=== PATIENT | female | born 1980 | race Caucasian/White ===

== ENCOUNTER → 2016-08-24 | Outpatient (CLI) | payer BC ==
[2016-08-24 15:20] LABS: Basophils # (A) 0.1 k/uL (0-0.2); Basophils % (A) 1 %; CH 34.4; CHCM 34.4; Eosinophils # (A) 0.1 k/uL (0-0.7); Eosinophils % (A) 1 %; HCT 45.1 % (34.0-46.0); HDW 2.71; HGB 15.8 gm/dL (11.4-16.0); Luc # (Auto) 0.15; Luc % (Auto) 2; Lymphocytes # (A) 1.9 k/uL (1.0-4.8); Lymphocytes % (A) 21 %; MCH 35.1 pg (25.0-35.0); MCHC 34.9 g/dL (31.0-37.0); MCV 100.6 fL (80.0-100.0); Macrocytosis Slight; Monocytes # (A) 0.4 k/uL (0-1.0); Monocytes % (A) 4 %; Neutrophils # (A) 6.6 k/uL (1.3-7.7); Neutrophils % (A) 72 %; RBC 4.48 m/uL (3.80-5.40); RDW 13.5 % (11.5-15.5); WBC 9.3 k/uL (3.8-10.6); WBC (Perox) 9.45
[2016-08-24 15:42] LABS: ALT 35 U/L (9-52); AST 25 U/L (14-36); Blood Urea Nitrogen 16 mg/dL (7-17); Non-African American GFR(MDRD) >60 (>60 ml/min/1.73 sqM)
[2016-08-24 16:00] LABS: HCG,Quantitative Serum <2.4 mIU/mL
[2016-08-24 16:14] LABS: Hepatitis B Surface Ag Index 0.05
[2016-08-24 16:31] LABS: Hepatitis B Surface Antibody Negative (Negative); Hepatitis C Virus IgG Ab Negative (Negative); Hepatitis C Virus IgG Index 0.02
== END ==
LOC: LABWHC1 14:53
PROVIDERS: ATTEND Dermatology
DX: D48.5 Neoplasm of uncertain behavior of skin (principal)
CPT/HCPCS: 36415; 82565; 84450; 84460; 84520; 84702; 85025; 86706; 86803; 87340

== ENCOUNTER 2017-06-12 09:57 | Emergency (ER) | payer OTHER ==
[2017-06-12] MEDS ORDERED: ONDANSETRON 4 MG/2 ML VIAL IVP STA (10:30)
[2017-06-12] MEDS ORDERED: SODIUM CHLORIDE 0.9% 1,000 ML IV ONE ×2 (10:30)
--- NOTE | 2017-06-12 10:34 | ED ---
Female Urogenital HPI - General Chief complaint: Vaginal Bleeding Stated complaint: Vaginal Bleeding Time Seen by Provider: 06/12/17 10:18 Source: patient, EMS Mode of arrival: EMS - History of Present Illness Initial comments: This 37-year-old white female presents complaining of vaginal bleeding. She relates that it started a couple hours ago. She passed very large clots and then was continuously bleeding. She states that she was sitting on the toilet and bleeding out of significant amount. She presents via EMS. She denies any abdominal pain. She does relate that she had a right adnexal mass removed approximately a month and a half ago. This showed endometrial carcinoma. She followed up at [facility] in [place] and had a laparoscopic hysterectomy done approximately 2 weeks ago. She denies any significant bleeding since that time. She has not started any chemotherapy as of yet. Her surgical scars of been feeling well. She feels slightly lightheaded and has some mild nausea but denies any other complaints. - Related Data Home Medications Medication Instructions Recorded Confirmed metFORMIN HCL [Glucophage] 500 mg PO TID PRN 04/27/17 06/12/17 Lisinopril [Zestril] 20 mg PO DAILY 06/12/17 06/12/17 Allergies Allergy/AdvReac Type Severity Reaction Status Date / Time Sulfa (Sulfonamide Allergy Unknown Verified 06/12/17 11:25 Antibiotics) Review of Systems ROS Statement: Those systems with pertinent positive or pertinent negative responses have been documented in the HPI. ROS Other: All systems not noted in ROS Statement are negative. Past Medical History Past Medical History: Diabetes Mellitus, Hypertension Additional Past Medical History / Comment(s): Kidney stones History of Any Multi-Drug Resistant Organisms: MRSA Date of last positivie culture/infection: 04/19/17 MDRO Source:: urine Past Surgical History: Back Surgery, Hysterectomy, Orthopedic Surgery Additional Past Surgical History / Comment(s): back x 2/lithrotripsy and stent in kidney, OOPHERECTOMY Apr BY DR BERNARD, HYSTERECTOMY [address] DUNLAP AT [facility]. Past Anesthesia/Blood Transfusion Reactions: No Reported Reaction Past Psychological History: No Psychological Hx Reported Smoking Status: Current every day smoker Past Alcohol Use History: Occasional - Past Family History Mother Family Medical History: Diabetes Mellitus, Hypertension Father Family Medical History: Diabetes Mellitus, Hypertension General Exam - General Exam Comments Initial Comments: GENERAL: The patient is well nourished and well hydrated. VITAL SIGNS: Heart rate, blood pressure, respiratory rate reviewed as recorded in nurse's notes. EYES: Pupils are round and reactive. Extraocular movements are intact. No conjunctival / lid redness or swelling. ENT: No external evidence of injury, swelling, or ecchymosis. Airway is patent. Throat is clear. NECK: Nontender. No swelling or evidence of injury. No subcutaneous emphysema. Trachea is midline. No thyroid mass. HEART: Regular rate and rhythm. Good peripheral pulses. LUNGS/CHEST: Breath sounds clear and equal bilaterally. No rales, rhonchi, or wheezes. No ecchymosis, subcutaneous emphysema, or tenderness. ABDOMEN: Abdomen soft without tenderness. No palpable masses or organomegaly. No peritoneal signs. No abdominal wall swelling or ecchymosis. EXTREMITIES: No extremity tenderness. Normal muscle tone and function. No thoracolumbar tenderness. NEUROLOGIC: Sensation is grossly intact. Cranial nerve exam reveals face is symmetrical, tongue is midline, speech is clear. SKIN: No abrasions or ecchymosis is noted. No induration or masses noted. PSYCHIATRIC: Alert and oriented. Appropriate behavior and judgment. Pelvic exam: There is some blood clots noted in the vaginal canal. There is no active bleeding noted. There is a area of scab noted where the cervix should be. There is no perineal lesions. There may be some very mild left adnexal tenderness but no midline or right sided tenderness. Course Vital Signs 06/12/17 06/12/17 10:04 13:08 Temperature 97.9 F 98.9 F Pulse Rate 97 67 Respiratory 18 15 Rate Blood Pressure 122/89 96/54 O2 Sat by Pulse 100 100 Oximetry Medical Decision Making - Medical Decision Making The patient was seen and examined. All diagnostics were reviewed. An IV is started and she is hydrated. Pelvic exam is performed. She receives some Zofran intravenously. No significant bleeding currently is noted on pelvic examination. The case is discussed with Dr. Bernard as well as Dr. Hay, her gynecologic oncologist out of [facility]. Dr. Lauren does present and evaluates the patient in the ER. He does perform a pelvic exam. He packs her vagina with some iodoform gauze. He feels as though she is stable for discharge. She is to remove the packing tomorrow and follow-up with Dr. Hay on Sunday, 3 days from now. She is to call Dr. Bernard if there are any further significant bleeding or dizziness. The patient's labs are currently stable. She did receive 4 mg of morphine as well prior to the vaginal packing as she did have a moderate amount of pain just on pelvic examination by myself. Ultram as though she is stable for discharge and leaves in no significant distress. - Lab Data Result diagrams: 06/12/17 10:35 06/12/17 10:35 Lab Results 06/12/17 06/12/17 06/12/17 Range/Units 10:35 10:35 10:35 WBC 7.8 (3.8-10.6) k/uL RBC 3.78 L (3.80-5.40) m/uL Hgb 11.6 (11.4-16.0) gm/dL Hct 35.1 (34.0-46.0) % MCV 92.9 (80.0-100.0) fL MCH 30.8 (25.0-35.0) pg MCHC 33.2 (31.0-37.0) g/dL RDW 13.2 (11.5-15.5) % Plt Count 488 H (150-450) k/uL Neutrophils % 69 % Lymphocytes % 23 % Monocytes % 4 % Eosinophils % 1 % Basophils % 0 % Neutrophils # 5.4 (1.3-7.7) k/uL Lymphocytes # 1.8 (1.0-4.8) k/uL Monocytes # 0.3 (0-1.0) k/uL Eosinophils # 0.1 (0-0.7) k/uL Basophils # 0.0 (0-0.2) k/uL PT (9.0-12.0) sec INR (<1.2) APTT (22.0-30.0) sec Sodium 142 (137-145) mmol/L Potassium 5.0 (3.5-5.1) mmol/L Chloride 106 (98-107) mmol/L Carbon Dioxide 23 (22-30) mmol/L Anion Gap 13 mmol/L BUN 12 (7-17) mg/dL Creatinine 0.66 (0.52-1.04) mg/dL Est GFR (CKD-EPI)AfAm >90 (>60 ml/min/1.73 sqM) Est GFR (CKD-EPI)NonAf >90 (>60 ml/min/1.73 sqM) Glucose 158 H (74-99) mg/dL Calcium 9.3 (8.4-10.2) mg/dL Total Bilirubin 0.4 (0.2-1.3) mg/dL AST 25 (14-36) U/L ALT 28 (9-52) U/L Alkaline Phosphatase 70 (38-126) U/L Total Protein 7.3 (6.3-8.2) g/dL Albumin 4.0 (3.5-5.0) g/dL Blood Type A Positive Blood Type Recheck No Antibody Screen NEGATIVE Spec Expiration Date 06/15/2017233406/12/17 Range/Units 10:35 WBC (3.8-10.6) k/uL RBC (3.80-5.40) m/uL Hgb (11.4-16.0) gm/dL Hct (34.0-46.0) % MCV (80.0-100.0) fL MCH (25.0-35.0) pg MCHC (31.0-37.0) g/dL RDW (11.5-15.5) % Plt Count (150-450) k/uL Neutrophils % % Lymphocytes % % Monocytes % % Eosinophils % % Basophils % % Neutrophils # (1.3-7.7) k/uL Lymphocytes # (1.0-4.8) k/uL Monocytes # (0-1.0) k/uL Eosinophils # (0-0.7) k/uL Basophils # (0-0.2) k/uL PT 9.9 (9.0-12.0) sec INR 1.0 (<1.2) APTT 22.1 (22.0-30.0) sec Sodium (137-145) mmol/L Potassium (3.5-5.1) mmol/L Chloride (98-107) mmol/L Carbon Dioxide (22-30) mmol/L Anion Gap mmol/L BUN (7-17) mg/dL Creatinine (0.52-1.04) mg/dL Est GFR (CKD-EPI)AfAm (>60 ml/min/1.73 sqM) Est GFR (CKD-EPI)NonAf (>60 ml/min/1.73 sqM) Glucose (74-99) mg/dL Calcium (8.4-10.2) mg/dL Total Bilirubin (0.2-1.3) mg/dL AST (14-36) U/L ALT (9-52) U/L Alkaline Phosphatase (38-126) U/L Total Protein (6.3-8.2) g/dL Albumin (3.5-5.0) g/dL Blood Type Blood Type Recheck Antibody Screen Spec Expiration Date Disposition Clinical Impression: Vaginal bleeding, Endometrial cancer, History of hysterectomy Disposition: HOME SELF-CARE Condition: Good Referrals: Jim Garner DO [Primary Care Provider] - 1-2 days Eric Bernard MD [STAFF PHYSICIAN] - 06/19/17 Time of Disposition: 14:38
[2017-06-12 11:03] LABS: ALT 28 U/L (9-52); AST 25 U/L (14-36); Alkaline Phosphatase 70 U/L (38-126); Anion Gap 13 mmol/L; Blood Urea Nitrogen 12 mg/dL (7-17); Calcium 9.3 mg/dL (8.4-10.2); Carbon Dioxide 23 mmol/L (22-30); Chloride 106 mmol/L (98-107); Glucose 158 mg/dL (74-99); Sodium 142 mmol/L (137-145); Total Bilirubin 0.4 mg/dL (0.2-1.3); Total Protein 7.3 g/dL (6.3-8.2)
[2017-06-12 11:16] LABS: Basophils % (A) 0 %; Eosinophils # (A) 0.1 k/uL (0-0.7); Eosinophils % (A) 1 %; HCT 35.1 % (34.0-46.0); HGB 11.6 gm/dL (11.4-16.0); Lymphocytes # (A) 1.8 k/uL (1.0-4.8); Lymphocytes % (A) 23 %; MCH 30.8 pg (25.0-35.0); MCHC 33.2 g/dL (31.0-37.0); MCV 92.9 fL (80.0-100.0); Mean Platelet Volume 7.2; Monocytes # (A) 0.3 k/uL (0-1.0); Monocytes % (A) 4 %; Neutrophils # (A) 5.4 k/uL (1.3-7.7); Neutrophils % (A) 69 %; Platelet Count 488 k/uL (150-450); RBC 3.78 m/uL (3.80-5.40); RDW 13.2 % (11.5-15.5); WBC 7.8 k/uL (3.8-10.6)
[2017-06-12 11:18] LABS: Partial Thromboplastin Time 22.1 sec (22.0-30.0); Prothrombin Time 9.9 sec (9.0-12.0)
[2017-06-12] MEDS ORDERED: MORPHINE SULFATE 4 MG/ML SYRINGE IV STA (12:41)
[2017-06-12 13:09] VITALS: BP 96/54; PULSE 67; RESP 15; TEMP 98.9
--- NOTE | 2017-06-12 14:37 | P.OBCN ---
History of Present Illness Consult date: 06/12/17 Requesting physician: Manfred Cole Reason for consult: other (Vaginal bleeding) Chief complaint: Acute vaginal bleeding status post hysterectomy 2 weeks ago History of present illness: The patient is a 37-year-old woman who was initially admitted to ne approximately 6-8 weeks ago with acute abdominal pain through the emergency room. The at that time, she was found to have an acute abdomen and was taken to the operating room secondary to findings of a large what appeared to be hemorrhagic right ovarian cyst. Intraoperatively, the mass was noted to be adherent to local structures including the uterus and pelvic sidewall. It was ultimately removed through the laparotomy and sent for pathology. She did very well in the postop. 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 As a result, she was referred to the [facility] gynecology system for further evaluation and treatment. She was taken to the operating room 2 weeks ago where she underwent a da Eugenia robotically assisted laparoscopic hysterectomy and staging procedure. Her left ovary was left in situ. She reportedly did well in the postoperative phase though she had some slow return of normal bowel function. She reports that this morning, she began to have acute vaginal bleeding and passage of clots. Of some interest, she reports that the clots were all dark, there was no fresh red bleeding. The did feel somewhat dizzy and, not knowing what else to do, presented to the emergency room for evaluation. She denies any significant ongoing vaginal bleeding at this time. She denies any further symptoms of orthostasis. Obstetric and gynecologic history: Pertinent only as noted in history of present illness. Review of Systems Review of systems is confined to history of present illness. Past Medical History Past Medical History: Diabetes Mellitus, Hypertension Additional Past Medical History / Comment(s): Kidney stones History of Any Multi-Drug Resistant Organisms: MRSA Year Discovered:: 04/19/17 MDRO Source:: urine Past Surgical History: Back Surgery, Hysterectomy, Orthopedic Surgery Additional Past Surgical History / Comment(s): back x 2/lithrotripsy and stent in kidney, OOPHERECTOMY Apr BY DR MARIA, HYSTERECTOMY [address] DUNLAP AT [facility]. Past Anesthesia/Blood Transfusion Reactions: No Reported Reaction Past Psychological History: No Psychological Hx Reported Smoking Status: Current every day smoker Past Alcohol Use History: Occasional - Past Family History Mother Family Medical History: Diabetes Mellitus, Hypertension Father Family Medical History: Diabetes Mellitus, Hypertension Medications and Allergies Home Medications Medication Instructions Recorded Confirmed Type metFORMIN HCL [Glucophage] 500 mg PO TID PRN 04/27/17 06/12/17 History Lisinopril [Zestril] 20 mg PO DAILY 06/12/17 06/12/17 History Allergies Allergy/AdvReac Type Severity Reaction Status Date / Time Sulfa (Sulfonamide Allergy Unknown Verified 06/12/17 11:25 Antibiotics) Exam - Vital Signs Vital signs: Vital Signs Temp Pulse Resp BP Pulse Ox 06/12/17 13:08 98.9 F 67 15 96/54 100 06/12/17 10:04 97.9 F 97 18 122/89 100 Intake and Output 06/11/17 06/12/17 06/12/17 22:59 06:59 14:59 Other: Weight 104.326 kg Patient Weight 06/13/17 06:59 Weight 104.326 kg In general, this is a moderately obese white female in no acute distress. Her heart has a regular rhythm and rate without murmur. Her lungs are clear to auscultation bilaterally in all marcelo. Her abdomen is obese, nondistended, has normal active bowel sounds, is soft, nontender aside from typical postsurgical tenderness and without any apparent masses. Speculum examination demonstrates a small amount of old-appearing clot in the vaginal vault near the apex of the vagina. The cuff was never entirely viewed but was covered with clot which was left in place. As there was no active ongoing bleeding nor any sites to potentially place a stitch, the decision was made to pack the vagina. 2 inch iodophor gauze covered with bacitracin ointment was then used to pack the vagina from the apex to the introitus. Results Result Diagrams: 06/12/17 10:35 06/12/17 10:35 Abnormal Lab Results - Last 24 Hours (Table) 06/12/17 06/12/17 Range/Units 10:35 10:35 RBC 3.78 L (3.80-5.40) m/uL Plt Count 488 H (150-450) k/uL Glucose 158 H (74-99) mg/dL Assessment and Plan (1) History of hysterectomy Current Visit: Yes Status: Acute Code(s): Z90.710 - ACQUIRED ABSENCE OF BOTH CERVIX AND UTERUS SNOMED Code(s): 243116494 (2) Vaginal bleeding Current Visit: Yes Status: Acute Code(s): N93.9 - ABNORMAL UTERINE AND VAGINAL BLEEDING, UNSPECIFIED SNOMED Code(s): 721948044 Plan: I suspect the patient had a vaginal cuff hematoma which worked its way through the stitch line this morning. Typically, these are self-limited. In either case, I have packed the vagina with iodoform gauze as noted above in order to create some form of Blanket not. She has an appointment to follow-up in the [facility] oncology in approximately 3 days. I have asked her to remove the packing at home herself and follow-up with [facility] oncology as previously planned. I discussed the case with the [facility] oncologist of record, Dr. Hay, who agrees with the plan as it has been outlined. I do feel that she is absolutely hemodynamically stable and can be discharged home to follow-up in the outpatient as noted above.
--- NOTE | 2017-06-12 14:41 | ED ---
Medical Decision Making - Lab Data Result diagrams: 06/12/17 10:35 06/12/17 10:35 Lab Results 06/12/17 06/12/17 06/12/17 Range/Units 10:35 10:35 10:35 WBC 7.8 (3.8-10.6) k/uL RBC 3.78 L (3.80-5.40) m/uL Hgb 11.6 (11.4-16.0) gm/dL Hct 35.1 (34.0-46.0) % MCV 92.9 (80.0-100.0) fL MCH 30.8 (25.0-35.0) pg MCHC 33.2 (31.0-37.0) g/dL RDW 13.2 (11.5-15.5) % Plt Count 488 H (150-450) k/uL Neutrophils % 69 % Lymphocytes % 23 % Monocytes % 4 % Eosinophils % 1 % Basophils % 0 % Neutrophils # 5.4 (1.3-7.7) k/uL Lymphocytes # 1.8 (1.0-4.8) k/uL Monocytes # 0.3 (0-1.0) k/uL Eosinophils # 0.1 (0-0.7) k/uL Basophils # 0.0 (0-0.2) k/uL PT (9.0-12.0) sec INR (<1.2) APTT (22.0-30.0) sec Sodium 142 (137-145) mmol/L Potassium 5.0 (3.5-5.1) mmol/L Chloride 106 (98-107) mmol/L Carbon Dioxide 23 (22-30) mmol/L Anion Gap 13 mmol/L BUN 12 (7-17) mg/dL Creatinine 0.66 (0.52-1.04) mg/dL Est GFR (CKD-EPI)AfAm >90 (>60 ml/min/1.73 sqM) Est GFR (CKD-EPI)NonAf >90 (>60 ml/min/1.73 sqM) Glucose 158 H (74-99) mg/dL Calcium 9.3 (8.4-10.2) mg/dL Total Bilirubin 0.4 (0.2-1.3) mg/dL AST 25 (14-36) U/L ALT 28 (9-52) U/L Alkaline Phosphatase 70 (38-126) U/L Total Protein 7.3 (6.3-8.2) g/dL Albumin 4.0 (3.5-5.0) g/dL Blood Type A Positive Blood Type Recheck No Antibody Screen NEGATIVE Spec Expiration Date 06/15/2017 - 233406/12/17 Range/Units 10:35 WBC (3.8-10.6) k/uL RBC (3.80-5.40) m/uL Hgb (11.4-16.0) gm/dL Hct (34.0-46.0) % MCV (80.0-100.0) fL MCH (25.0-35.0) pg MCHC (31.0-37.0) g/dL RDW (11.5-15.5) % Plt Count (150-450) k/uL Neutrophils % % Lymphocytes % % Monocytes % % Eosinophils % % Basophils % % Neutrophils # (1.3-7.7) k/uL Lymphocytes # (1.0-4.8) k/uL Monocytes # (0-1.0) k/uL Eosinophils # (0-0.7) k/uL Basophils # (0-0.2) k/uL PT 9.9 (9.0-12.0) sec INR 1.0 (<1.2) APTT 22.1 (22.0-30.0) sec Sodium (137-145) mmol/L Potassium (3.5-5.1) mmol/L Chloride (98-107) mmol/L Carbon Dioxide (22-30) mmol/L Anion Gap mmol/L BUN (7-17) mg/dL Creatinine (0.52-1.04) mg/dL Est GFR (CKD-EPI)AfAm (>60 ml/min/1.73 sqM) Est GFR (CKD-EPI)NonAf (>60 ml/min/1.73 sqM) Glucose (74-99) mg/dL Calcium (8.4-10.2) mg/dL Total Bilirubin (0.2-1.3) mg/dL AST (14-36) U/L ALT (9-52) U/L Alkaline Phosphatase (38-126) U/L Total Protein (6.3-8.2) g/dL Albumin (3.5-5.0) g/dL Blood Type Blood Type Recheck Antibody Screen Spec Expiration Date Disposition Clinical Impression: Vaginal bleeding, Endometrial cancer, History of hysterectomy Disposition: HOME SELF-CARE Condition: Good Additional Instructions: We saw you today for vaginal bleeding after a hysterectomy. Please follow-up with their gynecologic oncologist in 3 days as scheduled. Please remove the packing tomorrow. Please call Dr. Bernard if there is further bleeding or dizziness. Referrals: Jim Garner DO [Primary Care Provider] - 1-2 days Eric Bernard MD [STAFF PHYSICIAN] - 06/19/17
== END 2017-06-12 15:32 | disposition home or self-care (01) ==
LOC: EC 09:57
DX: C54.1 Malignant neoplasm of endometrium (principal); Z90.710 Acquired absence of both cervix and uterus; I10 Essential (primary) hypertension; F17.200 Nicotine dependence, unspecified, uncomplicated; Z98.890 Other specified postprocedural states; Z86.14 Personal history of Methicillin resistant Staphylococcus aureus infection; Z88.2 Allergy status to sulfonamides; Z79.899 Other long term (current) drug therapy
CPT/HCPCS: 36415; 86900; 86901; 80053; 85025; 85610; 85730; 86850; 99284; 96374; 96375; 96361; J2270; J2405

== ENCOUNTER 2017-09-27 | Emergency (ER) | payer OTHER | END 2017-09-27 01:57 | disposition home or self-care (01) | DX: R21 Rash and other nonspecific skin eruption (principal); E11.9 Type 2 diabetes mellitus without complications; I10 Essential (primary) hypertension; F17.200 Nicotine dependence, unspecified, uncomplicated; Z79.84 Long term (current) use of oral hypoglycemic drugs; Z79.899 Other long term (current) drug therapy; Z88.2 Allergy status to sulfonamides ==

== ENCOUNTER → 2017-11-22 | Outpatient (CLI) | payer OTHER ==
--- NOTE | 2017-11-22 11:06 | US ---
EXAMINATION TYPE: US venous doppler duplex UE LT DATE OF EXAM: 11/22/2017 COMPARISON: NONE CLINICAL HISTORY: R22.32 Swelling of left upper limb. Patient denies swelling but has left medial ant erior arm pain from mid upper arm to below brachial fossa x 2 days; chemo port in right chest per pat ient for endometrial CA SIDE PERFORMED: left Left Arm: Negative for DVT. Is positive for occluding Superficial Venous thrombosis in Left Basilic V ein at patient's complaint of pain. IMPRESSION: 1. Left upper extremity negative for deep venous thrombosis. 2. There is some thrombosis within the basilic vein at the level of the patient's pain, a superficial vessel.
== END | disposition home or self-care (01) ==
LOC: RADUSWWP 10:16
PROVIDERS: ATTEND Internal Medicine Hematology & Oncology
DX: I82.612 Acute embolism and thrombosis of superficial veins of left upper extremity (principal)

== ENCOUNTER → 2018-01-16 | Outpatient (CLI) | payer OTHER ==
[2018-01-16 10:08] LABS: Blood Urea Nitrogen 22 mg/dL (7-17)
--- NOTE | 2018-01-16 12:46 | CT ---
EXAMINATION TYPE: CT abdomen pelvis w con DATE OF EXAM: 01/16/2018 COMPARISON: 06/20/[address] 04/27/2017 HISTORY: 38 year-old female follow-up Endometrial cancer. TECHNIQUE: Contiguous axial scanning of the abdomen and pelvis following administration of 100 ml Iso jessie 300 IV contrast. Delayed images through the kidneys and coronal/sagittal reconstructions perform ed. CT DLP: 1890.3 mGycm Automated exposure control for dose reduction was used. FINDINGS: Heart normal size without pericardial effusion. Lung bases clear without pleural effusion. Liver enlarged measuring 21.5 cm. There is diminished attenuation of the hepatic parenchyma as compar ed to the spleen on portal venous phase suggesting underlying fatty infiltration. Portal venous syste m is patent. No biliary ductal dilatation. Gallbladder, adrenal glands, spleen, and pancreas appear within normal limits. Mild pelviectasis is unchanged. Symmetric uptake and excretion of contrast from the kidneys. Contrast has reached the renal pelves. The centimeter hypodensity lateral right kidney too small for accurate CT characterization, probable tiny cyst. No dilated small bowel, free fluid, or free air. No mesenteric or retroperitoneal lymphadenopathy. Oral contrast has progressed to the rectum. There is mild fat stranding in the pelvis and mild circum ferential wall thickening of the mid to distal sigmoid. Uterus surgically absent. There is a bilobed cystic structure in the left adnexa measuring 5.3 x 3.3 cm. No pelvic lymphadenopa thy or other abnormal fluid collection seen in the pelvis. Bones: Mild degenerative changes at the hips. Posterior lumbar fusion changes at L4-L5. No osseous de structive process. IMPRESSION: 1. STATUS POST HYSTERECTOMY AND BILATERAL SALPINGO-OOPHORECTOMY. THERE IS A BILOBED CYSTIC STRUCTURE IN THE LEFT ADNEXA MEASURING 5.3 X 3.3 CM. IF THERE WAS LYMPH NODE DISSECTION WELL, THIS COULD REP RESENT A POSTOPERATIVE LYMPHOCELE. OVARIAN ETIOLOGY DIFFICULT TO EXCLUDE. CORRELATE WITH SURGICAL YUMIKO HNIQUE. THIS DOES NOT HAVE THE APPEARANCE OF LYMPHADENOPATHY. FOLLOW-UP RECOMMENDED. 2. MILD FAT STRANDING IN THE PELVIS AND MILD WALL THICKENING OF THE MID TO DISTAL SIGMOID. THIS COULD REPRESENT POSTTREATMENT CHANGE. CORRELATE TO TIME SINCE PATIENT'S SURGERY AND FOR ANY RADIATION T HERAPY. 3. HEPATOMEGALY (21.5 CM) AND LIKELY UNDERLYING FATTY INFILTRATION.
== END | disposition home or self-care (01) ==
LOC: RADPROMAIN 09:21
PROVIDERS: ATTEND Internal Medicine Hematology & Oncology
DX: C54.1 Malignant neoplasm of endometrium (principal); K63.89 Other specified diseases of intestine; N83.8 Other noninflammatory disorders of ovary, fallopian tube and broad ligament; Z90.710 Acquired absence of both cervix and uterus; Z90.721 Acquired absence of ovaries, unilateral
CPT/HCPCS: 82565; 84520; 74177; J1642; Q9967

== ENCOUNTER 2018-01-31 09:01 | Inpatient (IN) | payer OTHER ==
[2018-01-31] MEDS ORDERED: SODIUM CHLORIDE 0.9% 1,000 ML IV STA (09:29)
[2018-01-31] MEDS ORDERED: ONDANSETRON 4 MG/2 ML VIAL IVP STA (09:29)
[2018-01-31] MEDS ORDERED: KETOROLAC 30 MG/ML 1 ML VIAL IVP STA (09:29)
--- NOTE | 2018-01-31 09:41 | ED ---
Abdominal Pain HPI - General Chief Complaint: Abdominal Pain Stated Complaint: Abd Pain, poss kidney stone Time Seen by Provider: 01/31/18 09:19 Source: patient, RN notes reviewed Mode of arrival: wheelchair Limitations: no limitations - History of Present Illness Initial Comments: This a 38-year-old female presents emergency Department chief complaint of right flank pain. Patient states his son onset around 3:30 AM. Patient states that this pain woke her up in is similar to her prior kidney stones. Patient does admit to some nausea with no vomiting. She states that she has been dry heaving. Patient denies any chest pain, shortness breath. Patient states that she recently was told she is in remission from her cancer. Patient states she has ovarian cancer she did have a hysterectomy leaving left ovary right was removed. Patient states her last chemotherapy was in December. Patient denies any fever, chills no dysuria no hematuria. Patient states that she has seen local urologist. - Related Data Home Medications Medication Instructions Recorded Confirmed metFORMIN HCL [Glucophage] 1,000 mg PO BID 04/27/17 01/31/18 Lisinopril [Zestril] 20 mg PO DAILY 06/12/17 01/31/18 Aspirin EC [Ecotrin Low Dose] 81 mg PO DAILY 01/31/18 01/31/18 Cetirizine HCl [Zyrtec] 10 mg PO DAILY 01/31/18 01/31/18 Cyclobenzaprine [Flexeril] 10 mg PO DAILY PRN 01/31/18 01/31/18 Diazepam [Valium] 5 mg PO DAILY PRN 01/31/18 01/31/18 Loratadine [Claritin] 10 mg PO DAILY 01/31/18 01/31/18 Montelukast [Singulair] 10 mg PO DAILY 01/31/18 01/31/18 Omeprazole 20 mg PO BID 01/31/18 01/31/18 Ondansetron [Zofran] 4 mg PO Q12HR PRN 01/31/18 01/31/18 Pyridoxine HCl (Vitamin B6) 100 mg PO DAILY 01/31/18 01/31/18 [Vitamin B-6] glipiZIDE [Glucotrol] 2.5 mg PO DAILY PRN 01/31/18 01/31/18 predniSONE 20 mg PO DAILY 01/31/18 01/31/18 Allergies Allergy/AdvReac Type Severity Reaction Status Date / Time Sulfa (Sulfonamide Allergy Unknown Verified 01/31/18 10:00 Antibiotics) Review of Systems ROS Statement: Those systems with pertinent positive or pertinent negative responses have been documented in the HPI. ROS Other: All systems not noted in ROS Statement are negative. Past Medical History Past Medical History: Cancer, Diabetes Mellitus, Hypertension Additional Past Medical History / Comment(s): Kidney stones. uterine and ovarian cancer. History of Any Multi-Drug Resistant Organisms: MRSA Date of last positivie culture/infection: 04/19/17 MDRO Source:: urine Past Surgical History: Back Surgery, Hysterectomy, Orthopedic Surgery Additional Past Surgical History / Comment(s): back x 2/lithrotripsy and stent in kidney, OOPHERECTOMY Apr BY DR MARIA, HYSTERECTOMY [address] DUNLAP AT [facility]. Past Anesthesia/Blood Transfusion Reactions: No Reported Reaction Past Psychological History: No Psychological Hx Reported Smoking Status: Current every day smoker Past Alcohol Use History: Occasional - Past Family History Mother Family Medical History: Diabetes Mellitus, Hypertension Father Family Medical History: Diabetes Mellitus, Hypertension General Exam Limitations: no limitations General appearance: alert, in no apparent distress Respiratory exam: Present: normal lung sounds bilaterally. Absent: respiratory distress, wheezes, rales, rhonchi, stridor Cardiovascular Exam: Present: regular rate, normal rhythm, normal heart sounds. Absent: systolic murmur, diastolic murmur, rubs, gallop, clicks GI/Abdominal exam: Present: soft, normal bowel sounds. Absent: distended, tenderness, guarding, rebound, rigid Back exam: Present: CVA tenderness (R). Absent: CVA tenderness (L) Skin exam: Present: warm, dry, intact, normal color. Absent: rash Course Vital Signs 01/31/18 01/31/18 01/31/18 09:12 10:50 11:56 Temperature 99.1 F Pulse Rate 94 80 78 Respiratory 18 18 16 Rate Blood Pressure 105/74 101/84 110/73 O2 Sat by Pulse 99 96 98 Oximetry Medical Decision Making - Medical Decision Making 38-year-old female presents emergency department for right flank pain. Patient had concerns for kidney stone. There is no evidence of kidney stone that she does have acute pyelonephritis. Patient will be admitted for IV antibiotics as she has a history of MRSA resistant urinary tract infection and history of ovarian cancer with last chemo treatment in December. - Lab Data Result diagrams: 01/31/18 09:59 01/31/18 09:59 Lab Results 01/31/18 01/31/18 01/31/18 Range/Units 09:16 09:59 09:59 WBC 7.3 (3.8-10.6) k/uL RBC 2.86 L (3.80-5.40) m/uL Hgb 10.0 L (11.4-16.0) gm/dL Hct 30.7 L (34.0-46.0) % MCV 107.3 H (80.0-100.0) fL MCH 34.8 (25.0-35.0) pg MCHC 32.4 (31.0-37.0) g/dL RDW 17.6 H (11.5-15.5) % Plt Count 167 (150-450) k/uL Neutrophils % Not Reportable Neutrophils % (Manual) 88 % Band Neutrophils % 3 % Lymphocytes % Not Reportable Lymphocytes % (Manual) 4 % Monocytes % Not Reportable Monocytes % (Manual) 5 % Eosinophils % Not Reportable Basophils % Not Reportable Metamyelocytes % 1 % Neutrophils # Not Reportable Neutrophils # (Manual) 6.60 (1.3-7.7) k/uL Lymphocytes # Not Reportable Lymphocytes # (Manual) 0.29 L (1.0-4.8) k/uL Monocytes # Not Reportable Monocytes # (Manual) 0.37 (0-1.0) k/uL Eosinophils # Not Reportable Basophils # Not Reportable Metamyelocytes # (Man) 0.07 H (0) k/uL Nucleated RBCs 0 (0-0) /100 WBC Manual Slide Review Performed Toxic Granulation Present Polychromasia Present Hypochromasia Slight Poikilocytosis Slight Anisocytosis Slight Macrocytosis Marked Sodium 138 (137-145) mmol/L Potassium 3.7 (3.5-5.1) mmol/L Chloride 105 (98-107) mmol/L Carbon Dioxide 23 (22-30) mmol/L Anion Gap 10 mmol/L BUN 13 (7-17) mg/dL Creatinine 0.57 (0.52-1.04) mg/dL Est GFR (CKD-EPI)AfAm >90 (>60 ml/min/1.73 sqM) Est GFR (CKD-EPI)NonAf >90 (>60 ml/min/1.73 sqM) Glucose 231 H (74-99) mg/dL Calcium 9.2 (8.4-10.2) mg/dL Total Bilirubin 0.7 (0.2-1.3) mg/dL AST 24 (14-36) U/L ALT 50 (9-52) U/L Alkaline Phosphatase 44 (38-126) U/L Total Protein 6.4 (6.3-8.2) g/dL Albumin 3.7 (3.5-5.0) g/dL Amylase 39 (30-110) U/L Lipase 99 (23-300) U/L Urine Color Yellow Urine Appearance Cloudy H (Clear) Urine pH 5.5 (5.0-8.0) Ur Specific [place] 1.010 (1.001-1.035) Urine Protein Trace H (Negative) Urine Glucose (UA) 1+ H (Negative) Urine Ketones Trace H (Negative) Urine Blood Moderate H (Negative) Urine Nitrite Positive H (Negative) Urine Bilirubin Negative (Negative) Urine Urobilinogen <2.0 (<2.0) mg/dL Ur Leukocyte Esterase Large H (Negative) Urine RBC 23 H (0-5) /hpf Urine WBC >182 H (0-5) /hpf Urine WBC Clumps Few H (None) /hpf Ur Squamous Epith Cells 3 (0-4) /hpf Urine Bacteria Occasional H (None) /hpf Urine Mucus Rare H (None) /hpf Disposition Clinical Impression: Acute pyelonephritis Disposition: ADMITTED IP TO THIS HOSP Condition: Stable Referrals: Jim Garner DO [Primary Care Provider] - 1-2 days
--- NOTE | 2018-01-31 10:22 | XR ---
EXAMINATION TYPE: XR KUB DATE OF EXAM: 01/31/2018 COMPARISON: 10/20/2011 INDICATION: Abdomen pain, history of renal stones TECHNIQUE: Single view abdomen upright view FINDINGS: There is a nonspecific bowel gas pattern. Air is within the colon. Psoas margins are normal. No organomegaly is present. No renal stones are evident. There is been interval L4-5 pedicle screws placed. No suspicious calcifi cations within the pelvis. IMPRESSION: 1. Nonspecific abdomen. 2. No suspicious renal or ureteral stones.
[2018-01-31] MEDS ORDERED: MORPHINE SULFATE 4 MG/ML SYRINGE IVP STA (10:25)
[2018-01-31 10:27] LABS: Anisocytosis Slight; HCT 30.7 % (34.0-46.0); Hypochromasia Slight; MCH 34.8 pg (25.0-35.0); MCHC 32.4 g/dL (31.0-37.0); MCV 107.3 fL (80.0-100.0); Macrocytosis Marked; Mean Platelet Volume 7.2; Platelet Count 167 k/uL (150-450); Poikilocytosis Slight; RBC 2.86 m/uL (3.80-5.40); RDW 17.6 % (11.5-15.5); WBC 7.3 k/uL (3.8-10.6)
[2018-01-31 10:29] LABS: Appearance,Urine Cloudy (Clear); Bacteria,Urine Occasional /hpf; Bilirubin,Urine Negative (Negative); Blood,Urine Moderate (Negative); Color,Urine Yellow; Glucose,Urine (UA) 1+ (Negative); Ketones,Urine Trace (Negative); Leukocyte Esterase,Urine Large (Negative); Mucus,Urine Rare /hpf; Nitrite,Urine Positive (Negative); PH, Urine 5.5 (5.0-8.0); Protein,Urine Trace (Negative); RBC,Urine 23 /hpf (0-5); Squamous Epithelial Cell,Urine 3 /hpf (0-4); Urobilinogen,Urine <2.0 mg/dL (<2.0); WBC,Urine >182 /hpf (0-5)
[2018-01-31 10:37] LABS: ALT 50 U/L (9-52); AST 24 U/L (14-36); Albumin 3.7 g/dL (3.5-5.0); Alkaline Phosphatase 44 U/L (38-126); Amylase 39 U/L (30-110); Anion Gap 10 mmol/L; Blood Urea Nitrogen 13 mg/dL (7-17); Calcium 9.2 mg/dL (8.4-10.2); Carbon Dioxide 23 mmol/L (22-30); Chloride 105 mmol/L (98-107); Glucose 231 mg/dL (74-99); Lipase 99 U/L (23-300); Potassium 3.7 mmol/L (3.5-5.1); Sodium 138 mmol/L (137-145); Total Bilirubin 0.7 mg/dL (0.2-1.3); Total Protein 6.4 g/dL (6.3-8.2)
[2018-01-31 10:44] LABS: Band Neutrophils % 3 %; Lymphocytes # (M) 0.29 k/uL (1.0-4.8); Metamyelocytes # (M) 0.07 k/uL (0); Metamyelocytes % 1 %; Monocytes # (M) 0.37 k/uL (0-1.0); Neutrophils % (M) 88 %; Nucleated Red Blood Cells 0 /100 WBC (0-0); Polychromasia Present; Total Cells Counted 200; Toxic Granulation Present
--- NOTE | 2018-01-31 11:56 | CT ---
EXAMINATION TYPE: CT abdomen pelvis wo con DATE OF EXAM: 01/31/2018 COMPARISON: 01/16/2018 INDICATION: Hx hysterectomy, uterine/ovarian ca and renal stones. RT flank and lower pain w/nausea. DLP: 903.3 mGycm, Automated exposure control for dose reduction was used. CONTRAST: None Study performed without Oral Contrast TECHNIQUE: Axial images were obtained from above the diaphragm to the pubic rami in the axial plane a t 5 mm thick sections. Reconstructed images are reviewed on the computer in the coronal plane. FINDINGS: Limited CT sections are obtained the lung bases. The lung bases are clear. CT ABDOMEN: No omental caking is evident. Liver: Normal Spleen: Normal Pancreas: Normal Adrenal glands: The adrenal glands are normal. Gallbladder: Normal Kidneys: No masses are evident. No hydronephrosis is present. No cysts are present. There is a 0.2 cm calcification within the upper mid pole left kidney. Aorta: Vascular calcification is within the aorta. Inferior vena cava: Normal. CT PELVIS: Previous described bilobed hypodense area along the left iliac chain currently measures 5. 3 x 2.5 cm which is slightly smaller than comparison. Loops of bowel within the abdomen and pelvis are normal. There are loops of bowel which are incom pletely distended or lack oral contrast limiting their evaluation. Appendix: Normal as visualized. This appears small. No inflammatory changes are in the right lower qu adrant. Urinary bladder: Normal. Genitourinary structures: Uterus and ovaries are not identified. Osseous structures: No suspicious lytic or sclerotic lesions. Postsurgical changes are within the low er lumbar spine. IMPRESSIONS: 1. Nonobstructing left renal stone. 2. No suspicious abnormality to account for right flank pain. 3. Stable left iliac chain bilobed hypodensity.
[2018-01-31] MEDS ORDERED: LEVOFLOXACIN 750MG-D5W PMX 750 MG in DEXTROSE/WATER 1 150ML.BAG IVPB STA (12:16)
[2018-01-31] MEDS ORDERED: VANCOMYCIN IV PER PHARMACY 1 EACH MISC MISCELLANE PRN (12:16)
[2018-01-31] MEDS ORDERED: HYDROcodone/APAP 5-325MG 1 EACH TAB PO PRN (12:19)
[2018-01-31] MEDS ORDERED: NALOXONE 0.4 MG/ML 1 ML VIAL IV PRN (12:19)
[2018-01-31] MEDS ORDERED: KETOROLAC 30 MG/ML 1 ML VIAL IVP PRN (12:19)
[2018-01-31] MEDS ORDERED: MORPHINE SULFATE 4 MG/ML SYRINGE IV PRN (12:19)
[2018-01-31] MEDS ORDERED: VANCOMYCIN 2,000 MG in SODIUM CHLORIDE 0.9% 500 ML 500 ML IVPB ONE (13:00)
[2018-01-31] MEDS: SODIUM CHLORIDE 0.9% 1,000 ML IV SCH (13:13)
[2018-01-31] MEDS ORDERED: DIAZEPAM 5 MG TAB PO PRN (13:27)
[2018-01-31] MEDS ORDERED: CYCLOBENZAPRINE 10 MG TAB PO PRN (13:27)
[2018-01-31 18:47] LABS: Glucose,Whole Blood 263 mg/dL (75-99)
[2018-01-31] MEDS: INSULIN ASPART 100 UNIT/ML 1 ML 10 ML VIAL SQ SCH ×2 (19:40→23:43)
[2018-01-31 20:14] LABS: Glucose,Whole Blood 281 mg/dL (75-99)
[2018-01-31] MEDS: ONDANSETRON 4 MG/2 ML VIAL IVP PRN (21:28)
[2018-01-31 21:36] LABS: Glucose,Whole Blood 143 mg/dL (75-99)
[2018-01-31] MEDS: metFORMIN 500 MG TAB PO SCH (21:41)
[2018-01-31] MEDS: VANCOMYCIN 1,750 MG in SODIUM CHLORIDE 0.9% 500 ML 500 ML IVPB SCH (21:42)
[2018-01-31] MEDS: PANTOPRAZOLE 40 MG TABLET PO SCH (21:42)
[2018-01-31 22:21] LABS: Hemoglobin A1C 7.1 % (4.0-6.0)
[2018-01-31 23:34] LABS: Glucose,Whole Blood 257 mg/dL (75-99)
--- NOTE | 2018-01-31 23:59 | CONS ---
CONSULTATION DATE OF SERVICE: 01/31/2018. REASON FOR CONSULTATION: Pyelonephritis, UTI. HISTORY OF PRESENT ILLNESS: The patient is a 38-year-old female with a past medical history significant for uterine and ovarian cancer for which the patient has completed her chemotherapy, last chemo was a few weeks ago. The patient has been in remission. The patient says she was doing well, however, she woke around 4 in the morning with right flank pain. Pain has been acute in onset and almost 10/10 in severity, with no significant radiation. The patient has felt nauseated but no vomiting with it. The patient did have a fever of 100.4 at home with persistent pain. She did call her oncologist, Dr. Hay, who advised the patient to go to the [facility] ER for further evaluation. On arrival to the ER, the patient's fever was down to 99.1. She was slightly tachycardic. Blood pressure has been normal. The patient's white count was normal as well. UA has been positive with large leukocyte esterase with more than 1 WBC and WBC clumps. The patient did have a CT abdomen and pelvis completed which showed a nonobstructive stone on her left kidney. The right kidney was reported to be normal. CT of the pelvis did shows slight decrease in the hyperdense mass in the left area. Loops of bowel have been normal, though incompletely distended. The appendix was normal. The patient did have a previous history off MRSA urinary tract infection in April 2017. For the same reason the patient has been started on vancomycin, pharmacy to dose, and did receive 2 rounds of Rocephin. Infectious Disease was consulted for further recommendation regarding antibiotic therapy. REVIEW OF SYSTEMS: CONSTITUTIONAL: Positive for weakness and low-grade fever. EYES: No complaints. ENT: No complaint. RESPIRATORY: No complaint. CARDIOVASCULAR: No complaint. GENITOURINARY: As per HPI. GASTROINTESTINAL: As per HPI. MUSCULOSKELETAL: No complaint. INTEGUMENTARY: No complaint. PSYCHOLOGIC: No complaint. ENDOCRINE: No complaint. NEUROLOGIC: No complaint. PAST MEDICAL HISTORY: Significant for uterine and ovarian cancer, history of kidney stone, hypertension, diabetes mellitus, MRSA urinary tract infection. PAST SURGICAL HISTORY: Hysterectomy, back surgery, lithotripsy with stent in the kidney, hysterectomy. SOCIAL HISTORY: The patient is current everyday smoker. Occasionally drinks. No drug use. FAMILY HISTORY: Mother with history of diabetes and hypertension. Father also with history of diabetes and hypertension. ALLERGIES: SULFA. MEDICATIONS: Currently the patient is on [place], aspirin, Flexeril, , Glucotrol, NovoLog, Toradol, Zestril, Claritin, Glucophage, Singulair, morphine sulfate, nicotine patch, Zofran, Protonix, vancomycin, every 12 hours. Did receive a dose of Rocephin and Levaquin in the ER. EXAMINATION: Blood pressure 102/72 with a pulse of 69, temperature 98.2, T-max is 99.1, she is 97% on room air. GENERAL DESCRIPTION: A middle-aged female, lying in bed in no distress. No tachypnea or accessory muscle of respiration use. HEENT: Shows pallor. No scleral icterus. Oral mucosa membranes are dry. No pharyngeal erythema or in the neck. Trachea central, no thyromegaly. LUNGS: Unlabored breathing. Clear to auscultation anteriorly. No wheeze or crackle. HEART: S1, S2. Regular rate and rhythm. ABDOMEN: Soft. She is mildly tender in the right flank area. No guarding. No rigidity. No organomegaly. EXTREMITIES: No edema of the feet. SKIN: No rash or mass palpable. NEUROLOGIC: The patient is awake, alert, oriented x3. Mood and affect normal. LABS: Hemoglobin is 10, white count 7.3. BUN of 13, creatinine 0.57. Electrolytes have been normal. Liver enzymes are normal. Urine has been cloudy with large leukocyte esterases, more than 1 to 2 WBC with WBC clumps. Blood culture has been obtained currently pending. Urine culture has been obtained, pending. DIAGNOSTIC IMPRESSION AND PLAN: Patient admitted to the hospital with acute right flank pain. The patient did have tenderness of the right flank and significantly positive urinalysis, likely secondary to acute right-sided pyelonephritis with a question of secondary to an enteric gram- negative pathogen, however, the patient does have a history of MRSA UTI and could be the same pathogen. PLAN: 1. Blood cultures x1 stat. 2. Patient will be treated with Rocephin 1 g daily in addition to the vancomycin pharmacy to dose target of 15 while waiting for the clinical condition to stabilizes and culture to finalize. 3. IV fluids. 4. We will follow up on clinical condition and culture to further adjust medication if needed. Thank you for this consultation. Will follow the patient along with you. XIOMARA / IJN: [id number] /
[2018-02-01] MEDS: SODIUM CHLORIDE 0.9% 1,000 ML IV SCH ×2 (02:39→14:56)
[2018-02-01] MEDS: VANCOMYCIN 1,750 MG in SODIUM CHLORIDE 0.9% 500 ML 500 ML IVPB SCH ×3 (05:47→22:08)
[2018-02-01 07:08] LABS: Glucose,Whole Blood 163 mg/dL (75-99)
[2018-02-01] MEDS: INSULIN ASPART 100 UNIT/ML 1 ML 10 ML VIAL SQ SCH ×4 (08:22→21:28)
[2018-02-01] MEDS: PANTOPRAZOLE 40 MG TABLET PO SCH (08:23)
[2018-02-01] MEDS: metFORMIN 500 MG TAB PO SCH ×2 (08:23→18:34)
[2018-02-01] MEDS: ASPIRIN 81 MG PO SCH (08:23)
[2018-02-01] MEDS: LISINOPRIL 20 MG TAB PO SCH (08:24)
[2018-02-01] MEDS: LORATADINE 10 MG TAB PO SCH (08:24)
[2018-02-01] MEDS: MONTELUKAST 10 MG TAB PO SCH (08:24)
[2018-02-01] MEDS: NICOTINE 14MG/24HR PATCH TRANSDERM SCH (08:26)
[2018-02-01] MEDS ORDERED: LORATADINE 10 MG TAB PO SCH (09:00)
[2018-02-01] MEDS ORDERED: predniSONE 2.5 MG TAB PO ONE (09:00)
[2018-02-01] MEDS: predniSONE 10 MG TAB PO SCH (10:09)
--- NOTE | 2018-02-01 10:14 | P.HPIM ---
History of Present Illness H&P Date: 02/01/18 Chief Complaint: right flank pain 38-year-old female with a past medical history significant for uterine and ovarian cancer, MRSA urinary tract infection, kidney stone, and diabetes mellitus presented to the emergency room with a chief complaint of right flank pain. Patient also reports she was having a low-grade fever at home. She denies chest pain or pressure. Denies shortness of breath, cough, or congestion. She denies nausea or vomiting. Patient reports she finished chemotherapy recently and had repeat imaging completed and was told her imaging showed no signs of cancer. The patient also has a history of a generalized rash on her body and has been on long-term steroids. She states she is been on a slow taper and currently taking 12.5 mg daily. She reports tomorrow, Sunday , 02/12/2018 she is supposed to wean down to [address] of the abdomen and pelvis was completed revealing nonobstructing left renal stone, no suspicious abnormality to account for right flank pain, stable left iliac chain bilobed hypodensity. KUB x-ray was completed revealing nonspecific abdomen. No suspicious renal or ureteral stones. Laboratory data on admission revealed white count 7.3. Hemoglobin 10.0. Platelet count 164. Sodium 138. Potassium 3.7. BUN 13. Creatinine 0.57. Glucose 231. Hemoglobin A1c 7.1%. Urinalysis revealed cloudy yellow urine, trace proteinuria, 1+ glucose, trace ketones, moderate blood, positive nitrates, large leukocyte esterase, RBC 23, WBCs greater than 182, few WBC clumps and rare mucus. The patient was started on IV fluids and antibiotics and admitted to the hospital under the care of Dr. Garner. Consultations were placed to infectious disease. Review of Systems Those systems with pertinent positive or pertinent negative responses have been documented in the HPI Past Medical History Past Medical History: Cancer, Diabetes Mellitus, GERD/Reflux, Hypertension, Osteoarthritis (OA), Skin Disorder Additional Past Medical History / Comment(s): Kidney stones. uterine and ovarian cancer. uti/mrsa 04-19-17,sciatica, arthrits hips,"herniated discs lumbar."superficialblood clot lt arm-takes baby aspirin ", approx 11 years. wore 24 hour halter monitor-nothing revealed." stated has been dealing with skin condition "rash/patchy blisters" for 2 years has had bx-neg but no dx as of yet stated has appt [facility] History of Any Multi-Drug Resistant Organisms: MRSA Date of last positivie culture/infection: 04/19/17 MDRO Source:: urine Past Surgical History: Back Surgery, Hysterectomy, Orthopedic Surgery Additional Past Surgical History / Comment(s): at age 7 had lymph nodes remopved from neck-benign,back x 3, lithrotripsy and stent-since removed in kidney, exploratory laparotomy andOOPHERECTOMY Apr BY DR MARIA, HYSTERECTOMY 2017 at [facility]. skin bx-neg Past Anesthesia/Blood Transfusion Reactions: Previous Problems w/ Anesthesia Additional Past Anesthesia/Blood Transfusion Reaction / Comment(s): "came of of aa "angry". Smoking Status: Current every day smoker - Past Family History Mother Family Medical History: Diabetes Mellitus, Hypertension Father Family Medical History: Diabetes Mellitus, Hypertension Medications and Allergies Home Medications Medication Instructions Recorded Confirmed Type metFORMIN HCL [Glucophage] 1,000 mg PO BID 04/27/17 01/31/18 History Lisinopril [Zestril] 20 mg PO DAILY 06/12/17 01/31/18 History Aspirin EC [Ecotrin Low Dose] 81 mg PO DAILY 01/31/18 01/31/18 History Cetirizine HCl [Zyrtec] 10 mg PO DAILY 01/31/18 01/31/18 History Cyclobenzaprine [Flexeril] 10 mg PO DAILY PRN 01/31/18 01/31/18 History Diazepam [Valium] 5 mg PO DAILY PRN 01/31/18 01/31/18 History Loratadine [Claritin] 10 mg PO DAILY 01/31/18 01/31/18 History Montelukast [Singulair] 10 mg PO DAILY 01/31/18 01/31/18 History Omeprazole 20 mg PO BID 01/31/18 01/31/18 History Ondansetron [Zofran] 4 mg PO Q12HR PRN 01/31/18 01/31/18 History Pyridoxine HCl (Vitamin B6) 100 mg PO DAILY 01/31/18 01/31/18 History [Vitamin B-6] glipiZIDE [Glucotrol] 2.5 mg PO DAILY PRN 01/31/18 01/31/18 History predniSONE 20 mg PO DAILY 01/31/18 01/31/18 History Allergies Allergy/AdvReac Type Severity Reaction Status Date / Time Sulfa (Sulfonamide Allergy Unknown Verified 01/31/18 10:00 Antibiotics) Physical Exam Vitals: Vital Signs Temp Pulse Pulse Resp BP BP Pulse Ox 02/01/18 05:00 98.2 F 78 16 108/69 97 01/31/18 21:45 16 01/31/18 21:00 97.8 F 78 16 120/81 96 01/31/18 17:09 98.2 F 69 18 102/72 97 01/31/18 11:56 78 16 110/73 98 01/31/18 10:50 80 18 101/84 96 Intake and Output 01/31/18 02/01/18 02/01/18 22:59 06:59 14:59 Intake Total 590 2480 Balance 590 2480 Intake: Intake, IV Titration 1400 Amount Vancomycin 1,750 mg In 500 Sodium Chloride 0.9% 500 ml 500 ml @ 167 mls/hr IVPB Q8H LUPILLO Rx#: [id number] cefTRIAXone 1,000 mg In 900 Sodium Chloride 0.9% 50 ml @ 100 mls/hr IVPB Q24HR [facility]PILLO Rx#:[id number] Oral 590 1080 Other: Voiding Method Toilet Toilet # Voids 2 3 GENERAL: This is a 38-year-old female in no apparent distress at the time of examination. Pleasant and cooperative. HEENT: Head is atraumatic, normocephalic. Pupils are equal, round, and reactive to light. Sclerae anicteric. Conjunctivae are clear. Mucus membranes of the mouth are moist. Neck is supple. RESPIRATORY: Clear to auscultation. No wheezes, rales, or rhonchi. No use of accessory muscles. Patient maintaining oxygen saturation greater than 92%. No chest wall tenderness is noted on palpation or with deep breathing. CARDIOVASCULAR: Regular rate and rhythm. S1 and S2 noted. No systolic or diastolic murmur auscultated. No JVD noted. No S3 or S4 noted. GASTROINTESTINAL: No distention noted. Abdomen soft and round. Normal active bowel sounds auscultated x 4 quadrants. Pain and tenderness noted upon palpation of right flank region. INTEGUMENTARY: No cyanosis. No jaundice. No rashes noted. No cellulitis noted. EXTREMITIES: 2+ peripheral pulses. No evidence of peripheral edema. No calf tenderness noted. NEUROLOGIC: Cranial nerves II-XII intact. PSYCHIATRIC: Awake, alert, and oriented X 3. Appropriate affect. Intact judgement and insight. Results CBC & Chem 7: 01/31/18 09:59 01/31/18 09:59 Labs: Abnormal Lab Results - Last 24 Hours (Table) 01/31/18 01/31/18 01/31/18 Range/Units 09:16 09:59 09:59 RBC 2.86 L (3.80-5.40) m/uL Hgb 10.0 L (11.4-16.0) gm/dL Hct 30.7 L (34.0-46.0) % MCV 107.3 H (80.0-100.0) fL RDW 17.6 H (11.5-15.5) % Lymphocytes # (Manual) 0.29 L (1.0-4.8) k/uL Metamyelocytes # (Man) 0.07 H (0) k/uL Glucose 231 H (74-99) mg/dL POC Glucose (mg/dL) (75-99) mg/dL Hemoglobin A1c (4.0-6.0) % Urine Appearance Cloudy H (Clear) Urine Protein Trace H (Negative) Urine Glucose (UA) 1+ H (Negative) Urine Ketones Trace H (Negative) Urine Blood Moderate H (Negative) Urine Nitrite Positive H (Negative) Ur Leukocyte Esterase Large H (Negative) Urine RBC 23 H (0-5) /hpf Urine WBC >182 H (0-5) /hpf Urine WBC Clumps Few H (None) /hpf Urine Bacteria Occasional H (None) /hpf Urine Mucus Rare H (None) /hpf 01/31/18 01/31/18 01/31/18 Range/Units 09:59 18:45 20:13 RBC (3.80-5.40) m/uL Hgb (11.4-16.0) gm/dL Hct (34.0-46.0) % MCV (80.0-100.0) fL RDW (11.5-15.5) % Lymphocytes # (Manual) (1.0-4.8) k/uL Metamyelocytes # (Man) (0) k/uL Glucose (74-99) mg/dL POC Glucose (mg/dL) 263 H 281 H (75-99) mg/dL Hemoglobin A1c 7.1 H (4.0-6.0) % Urine Appearance (Clear) Urine Protein (Negative) Urine Glucose (UA) (Negative) Urine Ketones (Negative) Urine Blood (Negative) Urine Nitrite (Negative) Ur Leukocyte Esterase (Negative) Urine RBC (0-5) /hpf Urine WBC (0-5) /hpf Urine WBC Clumps (None) /hpf Urine Bacteria (None) /hpf Urine Mucus (None) /hpf 01/31/18 01/31/18 02/01/18 Range/Units 21:35 23:33 07:07 RBC (3.80-5.40) m/uL Hgb (11.4-16.0) gm/dL Hct (34.0-46.0) % MCV (80.0-100.0) fL RDW (11.5-15.5) % Lymphocytes # (Manual) (1.0-4.8) k/uL Metamyelocytes # (Man) (0) k/uL Glucose (74-99) mg/dL POC Glucose (mg/dL) 143 H 257 H 163 H (75-99) mg/dL Hemoglobin A1c (4.0-6.0) % Urine Appearance (Clear) Urine Protein (Negative) Urine Glucose (UA) (Negative) Urine Ketones (Negative) Urine Blood (Negative) Urine Nitrite (Negative) Ur Leukocyte Esterase (Negative) Urine RBC (0-5) /hpf Urine WBC (0-5) /hpf Urine WBC Clumps (None) /hpf Urine Bacteria (None) /hpf Urine Mucus (None) /hpf Microbiology - Last 24 Hours (Table) 01/31/18 09:16 Urine Culture - Preliminary Urine,Voided Thrombosis Risk Factor Assmnt - Choose All That Apply Each Factor Represents 1 point: Obesity (BMI >25) Each Risk Factor Represents 2 Points: Malignancy Thrombosis Risk Factor Assessment Total Risk Factor Score: 3 Thrombosis Risk Factor Assessment Level: Moderate Risk Assessment and Plan Plan: ASSESSMENT: Acute right sided pyelonephritis, abnormal urinalysis with right sided flank pain, cultures pending History of MRSA urinary tract infection History of ovarian and uterine cancer, status post hysterectomy and chemotherapy History of generalized rash, currently completing slow prednisone taper Diabetes mellitus, type II Hypertension Left nonobstructing kidney stone History of kidney stones Gastroesophageal reflux disease Osteoarthritis Nicotine dependence, patient is a current cigarette smoker Obesity: BMI 37.6 PLAN: Infectious disease on consult. Appreciate recommendations and input Antibiotics per ID. Patient currently on Rocephin and vancomycin Await results of blood cultures and urine culture 12.5 mg prednisone today. Patient to wean down to 10 mg prednisone tomorrow per her home taper dose. Home meds as appropriate Monitor labs GI prophylaxis: Protonix 40 mg PO Daily DVT prophylaxis: SCDs to bilateral lower extremities Monitor vital signs and address as appropriate Discharge planning: Patient to return home when stable Further recommendations pending patient's course Nurse practitioner note has been reviewed by physician. Signing provider agrees with the documented findings, assessment, and plan of care.
[2018-02-01 11:38] LABS: Glucose,Whole Blood 164 mg/dL (75-99)
--- NOTE | 2018-02-01 14:25 | PN ---
PROGRESS NOTE DATE OF SERVICE: 02/01/2018 REASON FOR FOLLOWUP: Right-sided pyelonephritis. INTERVAL HISTORY: The patient is currently afebrile. The patient's right-sided flank pain has improved. The patient denies having nausea, no vomiting. Denies having any chest pain, shortness of breath or cough and no diarrhea. PHYSICAL EXAMINATION: Blood pressure 136/72 with a pulse of 68, temperature 98.4. She is 95% on room air. General description is an elderly female, lying in bed in no distress. RESPIRATORY SYSTEM: Unlabored breathing, clear to auscultation anteriorly. HEART: S1, S2. Regular rate and rhythm. ABDOMEN: Soft, no tenderness. LABS: Hemoglobin is 10, white count of 7.3. Blood culture currently pending. DIAGNOSTIC IMPRESSION AND PLAN: Patient admitted to the hospital with right flank pain, fever and significantly positive urinalysis likely right-sided pyelonephritis. Patient is to continue with Rocephin and vancomycin because of history of methicillin-resistant Staphylococcus aureus urinary tract infection. Waiting for the urine culture to finalize to determine discharge antibiotics. Continue supportive care. MMODL / IJN: [id number] /
[2018-02-01 16:42] LABS: Glucose,Whole Blood 224 mg/dL (75-99)
[2018-02-01 20:24] LABS: Glucose,Whole Blood 242 mg/dL (75-99)
[2018-02-02] MEDS: ONDANSETRON 4 MG/2 ML VIAL IVP PRN ×2 (01:20→09:57)
[2018-02-02] MEDS: SODIUM CHLORIDE 0.9% 1,000 ML IV SCH (02:48)
[2018-02-02] MEDS ORDERED: VANCOMYCIN TROUGH DUE 1 EACH MISC MISCELLANE ONE (05:00)
[2018-02-02] MEDS: VANCOMYCIN 1,750 MG in SODIUM CHLORIDE 0.9% 500 ML 500 ML IVPB SCH ×2 (06:08→17:54)
[2018-02-02 06:59] LABS: Glucose,Whole Blood 184 mg/dL (75-99)
[2018-02-02 08:27] LABS: Glucose,Whole Blood 174 mg/dL (75-99)
[2018-02-02] MEDS: INSULIN ASPART 100 UNIT/ML 1 ML 10 ML VIAL SQ SCH ×4 (08:30→21:32)
[2018-02-02] MEDS: MONTELUKAST 10 MG TAB PO SCH (08:36)
[2018-02-02] MEDS: metFORMIN 500 MG TAB PO SCH ×2 (08:36→17:54)
[2018-02-02] MEDS: NICOTINE 14MG/24HR PATCH TRANSDERM SCH (08:36)
[2018-02-02] MEDS: predniSONE 10 MG TAB PO SCH (08:37)
[2018-02-02] MEDS: ASPIRIN 81 MG PO SCH (08:37)
[2018-02-02] MEDS: LORATADINE 10 MG TAB PO SCH (08:37)
[2018-02-02] MEDS: PANTOPRAZOLE 40 MG TABLET PO SCH (08:37)
[2018-02-02 11:11] LABS: Glucose,Whole Blood 187 mg/dL (75-99)
[2018-02-02] MEDS: LISINOPRIL 20 MG TAB PO SCH (12:21)
[2018-02-02] MEDS ORDERED: ACETAMINOPHEN TAB 325 MG TAB PO PRN (13:16)
--- NOTE | 2018-02-02 13:55 | P.PN ---
Subjective Patient was admitted for right-sided pyelonephritis continues to have some low- grade fevers patient is on vancomycin and ceftriaxone. Infectious disease is following the patient urine cultures are positive for E. coli which is pansensitive. Patient had history of MRSA because of which for now she is being continued on vancomycin which probably can be discontinued as we have the urine cultures now. Patient does have history of uterine. Patient was comparing of some nausea will be started on proton pump inhibitor and the Zofran as needed. Constitutional: Denied any fatigue denied any fever. Cardio vascular: denied any chest pain, palpitations Gastrointestinal as mentioned in HPI Pulmonary: Denied any shortness of breath cough Neurologic denied any new focal deficits Objective - Vital Signs Vital signs: Vital Signs Temp 100.1 F H 02/02/18 13:00 Pulse 83 02/02/18 13:00 Resp 15 02/02/18 13:00 BP 136/62 02/02/18 13:00 Pulse Ox 99 02/02/18 13:00 Intake & Output 02/01/18 02/02/18 02/02/18 18:59 06:59 18:59 Intake Total 925 1750 Output Total 250 Balance 925 1500 Intake: Intake, IV Titration 925 1150 Amount Sodium Chloride 0.9% 1, 375 650 000 ml @ 75 mls/hr IV . [id number] [facility] Rx#:[id number] Vancomycin 1,750 mg In 500 Sodium Chloride 0.9% 500 ml 500 ml @ 167 mls/hr IVPB Q8H [facility] Rx#: [id number] Vancomycin 2,000 mg In 500 Sodium Chloride 0.9% 500 ml 500 ml @ 167 mls/hr IVPB ONCE ONE Rx#: [id number] cefTRIAXone 1,000 mg In 50 Sodium Chloride 0.9% 50 ml @ 100 mls/hr IVPB Q24HR [facility] Rx#:[id number] Oral 600 Output: Emesis 250 Other: Voiding Method Toilet Toilet Toilet # Voids 1 - Exam PHYSICAL EXAMINATION: GENERAL: The patient is alert and oriented x3, not in any acute distress. Well developed, well nourished. Obese HEENT: Pupils are round and equally reacting to light. EOMI. No scleral icterus. No conjunctival pallor. Normocephalic, atraumatic. No pharyngeal erythema. No thyromegaly. CARDIOVASCULAR: S1 and S2 present. No murmurs, rubs, or gallops. PULMONARY: Chest is clear to auscultation, no wheezing or crackles. ABDOMEN: Soft, nontender, nondistended, normoactive bowel sounds. No palpable organomegaly. MUSCULOSKELETAL: No joint swelling or deformity. EXTREMITIES: No cyanosis, clubbing, or as have bilateral pitting pedal edema NEUROLOGICAL: Gross neurological examination did not reveal any focal deficits. SKIN: No rashes. - Labs CBC & Chem 7: 01/31/18 09:59 02/02/18 05:21 Labs: Abnormal Lab Results - Last 24 Hours (Table) 02/01/18 02/01/18 02/02/18 Range/Units 16:41 20:22 05:21 Creatinine 0.51 L (0.52-1.04) mg/dL POC Glucose (mg/dL) 224 H 242 H (75-99) mg/dL 02/02/18 02/02/18 02/02/18 Range/Units 06:59 08:25 11:10 Creatinine (0.52-1.04) mg/dL POC Glucose (mg/dL) 184 H 174 H 187 H (75-99) mg/dL Microbiology - Last 24 Hours (Table) 01/31/18 09:16 Urine Culture - Final Urine,Voided Escherichia coli 01/31/18 22:00 Blood Culture - Preliminary Blood No Growth after 24 hours Assessment and Plan Plan: -Sepsis secondary to right-sided pyelonephritis and urinary tract infection considering her MRSA UTI in the past patient is on vancomycin although patient didn't consent positive for E. coli and patient is on Rocephin. -History of ovarian uterine cancer status post cystectomy chemotherapy -Type 2 diabetes mellitus -Hypertension -Left-sided nonobstructing nephrolithiasis -Gastroesophageal reflux disease -Nicotine dependence -Bilateral lower limb edema secondary to IV fluids which will be discontinued -Possible stress related gastritis and ulcerations patient was started on Protonix and continue his Zofran
[2018-02-02 17:21] LABS: Glucose,Whole Blood 196 mg/dL (75-99)
[2018-02-02 20:44] LABS: Glucose,Whole Blood 165 mg/dL (75-99)
[2018-02-02 21:33] VITALS: RESP 16
[2018-02-03 04:53] VITALS: BP 103/58; PULSE 69; TEMP 98.2
[2018-02-03] MEDS: VANCOMYCIN 1,750 MG in SODIUM CHLORIDE 0.9% 500 ML 500 ML IVPB SCH (06:21)
[2018-02-03 06:47] LABS: Glucose,Whole Blood 140 mg/dL (75-99)
[2018-02-03] MEDS: INSULIN ASPART 100 UNIT/ML 1 ML 10 ML VIAL SQ SCH ×2 (07:18→12:51)
[2018-02-03] MEDS: metFORMIN 500 MG TAB PO SCH (07:19)
[2018-02-03] MEDS: ASPIRIN 81 MG PO SCH (07:19)
[2018-02-03] MEDS: LORATADINE 10 MG TAB PO SCH (07:19)
[2018-02-03] MEDS: predniSONE 10 MG TAB PO SCH (07:19)
[2018-02-03] MEDS: LISINOPRIL 20 MG TAB PO SCH (07:19)
[2018-02-03] MEDS: PANTOPRAZOLE 40 MG TABLET PO SCH (07:19)
[2018-02-03] MEDS: NICOTINE 14MG/24HR PATCH TRANSDERM SCH (07:19)
[2018-02-03] MEDS: MONTELUKAST 10 MG TAB PO SCH (07:20)
[2018-02-03 11:11] LABS: Glucose,Whole Blood 152 mg/dL (75-99)
--- NOTE | 2018-02-03 12:36 | P.DS ---
Providers Date of admission: 01/31/18 12:19 Attending physician: Jim Garner Consults: 01/31/18 13:31 Consult Physician Routine Consulting Provider: Nelda Robison Consult Reason/Comments: UTI, hx of MRSA UTI Do you want consulting provider notified?: Yes Primary care physician: Jim Garner [facility] Course: Patient was admitted for right-sided pyelonephritis continues to have some low- grade fevers patient is on vancomycin and ceftriaxone. Infectious disease is following the patient urine cultures are positive for E. coli which is pansensitive. Patient had history of MRSA because of which for now she is being continued on vancomycin which probably can be discontinued as we have the urine cultures now. Patient does have history of uterine. Patient was comparing of some nausea will be started on proton pump inhibitor and the Zofran as needed. 02/03/2018 Patient is clinically doing well her edema improved patient is afebrile since yesterday afternoon discussed with infectious disease patient will be discharged on 10 more days of ciprofloxacin completing 14 day therapy for pyelonephritis. PHYSICAL EXAMINATION: GENERAL: The patient is alert and oriented x3, not in any acute distress. Well developed, well nourished. Obese HEENT: Pupils are round and equally reacting to light. EOMI. No scleral icterus. No conjunctival pallor. Normocephalic, atraumatic. No pharyngeal erythema. No thyromegaly. CARDIOVASCULAR: S1 and S2 present. No murmurs, rubs, or gallops. PULMONARY: Chest is clear to auscultation, no wheezing or crackles. ABDOMEN: Soft, nontender, nondistended, normoactive bowel sounds. No palpable organomegaly. MUSCULOSKELETAL: No joint swelling or deformity. EXTREMITIES: No cyanosis, clubbing, no edema NEUROLOGICAL: Gross neurological examination did not reveal any focal deficits. SKIN: No rashes. Assessment and Plan Plan: -Sepsis secondary to right-sided pyelonephritis and urinary tract infection, patient has E. coli which was pansensitive -History of ovarian uterine cancer status post cystectomy chemotherapy -Type 2 diabetes mellitus -Hypertension -Left-sided nonobstructing nephrolithiasis -Gastroesophageal reflux disease -Nicotine dependence -Possible stress related gastritis and ulcerations, improved now Patient Condition at Discharge: Stable Plan - Discharge Summary Discharge Rx Participant: No New Discharge Prescriptions: New Ciprofloxacin HCl [Cipro] 500 mg PO Q12H 10 Days #20 tab Continue metFORMIN HCL [Glucophage] 1,000 mg PO BID Lisinopril [Zestril] 20 mg PO DAILY Cyclobenzaprine [Flexeril] 10 mg PO DAILY PRN PRN Reason: Muscle Spasm glipiZIDE [Glucotrol] 2.5 mg PO DAILY PRN PRN Reason: Blood Sugar - High Ondansetron [Zofran] 4 mg PO Q12HR PRN PRN Reason: Nausea Pyridoxine HCl (Vitamin B6) [Vitamin B-6] 100 mg PO DAILY Omeprazole 20 mg PO BID Diazepam [Valium] 5 mg PO DAILY PRN PRN Reason: Anxiety Cetirizine HCl [Zyrtec] 10 mg PO DAILY Aspirin EC [Ecotrin Low Dose] 81 mg PO DAILY Montelukast [Singulair] 10 mg PO DAILY Loratadine [Claritin] 10 mg PO DAILY predniSONE 20 mg PO DAILY Discharge Medication List metFORMIN HCL [Glucophage] 1,000 mg PO BID 04/27/17 [History] Lisinopril [Zestril] 20 mg PO DAILY 06/12/17 [History] Aspirin EC [Ecotrin Low Dose] 81 mg PO DAILY 01/31/18 [History] Cetirizine HCl [Zyrtec] 10 mg PO DAILY 01/31/18 [History] Cyclobenzaprine [Flexeril] 10 mg PO DAILY PRN 01/31/18 [History] Diazepam [Valium] 5 mg PO DAILY PRN 01/31/18 [History] Loratadine [Claritin] 10 mg PO DAILY 01/31/18 [History] Montelukast [Singulair] 10 mg PO DAILY 01/31/18 [History] Omeprazole 20 mg PO BID 01/31/18 [History] Ondansetron [Zofran] 4 mg PO Q12HR PRN 01/31/18 [History] Pyridoxine HCl (Vitamin B6) [Vitamin B-6] 100 mg PO DAILY 01/31/18 [History] glipiZIDE [Glucotrol] 2.5 mg PO DAILY PRN 01/31/18 [History] predniSONE 20 mg PO DAILY 01/31/18 [History] Ciprofloxacin HCl [Cipro] 500 mg PO Q12H 10 Days #20 tab 02/03/18 [Rx] Follow up Appointment(s)/Referral(s): Jim Garner DO [Primary Care Provider] - 3 Days Nelda Robison MD [STAFF PHYSICIAN] - 1 Week Discharge Disposition: HOME SELF-CARE
== END 2018-02-03 13:15 | disposition home or self-care (01) | DRG 872 ==
LOC: EC 09:01 → 4SSUR 12:19 → 4MS4W 13:16 → 3NMEDONC 16:55
PROVIDERS: ADMIT Family Medicine; ATTEND Family Medicine
DX: A41.51 Sepsis due to Escherichia coli [E. coli] (principal); N10 Acute pyelonephritis; N20.0 Calculus of kidney; Z87.442 Personal history of urinary calculi; Z85.43 Personal history of malignant neoplasm of ovary; Z85.42 Personal history of malignant neoplasm of other parts of uterus; E11.9 Type 2 diabetes mellitus without complications; E66.9 Obesity, unspecified; F17.210 Nicotine dependence, cigarettes, uncomplicated; I10 Essential (primary) hypertension; K21.9 Gastro-esophageal reflux disease without esophagitis; M19.90 Unspecified osteoarthritis, unspecified site; Z68.37 Body mass index [BMI] 37.0-37.9, adult; Z79.52 Long term (current) use of systemic steroids; Z79.84 Long term (current) use of oral hypoglycemic drugs; Z79.899 Other long term (current) drug therapy; Z82.49 Family history of ischemic heart disease and other diseases of the circulatory system; Z83.3 Family history of diabetes mellitus; Z86.14 Personal history of Methicillin resistant Staphylococcus aureus infection; Z87.440 Personal history of urinary (tract) infections; Z90.6 Acquired absence of other parts of urinary tract; Z90.710 Acquired absence of both cervix and uterus; Z92.21 Personal history of antineoplastic chemotherapy; K29.00 Acute gastritis without bleeding; Z79.82 Long term (current) use of aspirin; Z88.5 Allergy status to narcotic agent; R21 Rash and other nonspecific skin eruption
CPT/HCPCS: 36415; 74018; 74176; 80053; 80202; 81001; 82150; 82565; 83036; 83690; 85025; 87040; 87077; 87086; 87186; 87324; 96361; 96365; 96366; 96367; 96375; 96376; 99285

== ENCOUNTER → 2019-02-05 | Outpatient (CLI) | payer BC ==
[2019-02-05 13:58] LABS: African American GFR (CKD) >90 (>60 ml/min/1.73 sqM); Blood Urea Nitrogen 7 mg/dL (7-17)
--- NOTE | 2019-02-05 15:37 | CT ---
EXAMINATION TYPE: CT abdomen pelvis w con DATE OF EXAM: 02/05/2019 COMPARISON: none HISTORY: Endometrial cancer CT DLP: 1604 mGycm CONTRAST: CT scan of the abdomen and pelvis is performed with Oral Contrast and with IV Contrast, patient injec cinthya with 100 mL of Isovue 300. FINDINGS: LUNG BASES-: No visible nodule. No infiltrate. LIVER/GB: No calcified gallstones. Fatty liver with mild hepatomegaly. No space occupying hepatic lesion. Biliary tree is of normal caliber. PANCREAS: No inflammation. No distinct mass. SPLEEN: No splenic enlargement. No lesion seen. ADRENALS: No nodule. No thickening. KIDNEYS/BLADDER: No hydronephrosis. No nephrolithiasis. No distinct renal mass. Urinary bladder g rossly unremarkable. BOWEL: Normal appendix. Wall thickening sigmoid colon. No inflammation. GENITAL ORGANS: Hysterectomy changes noted. No evidence for recurrent or residual vaginal cuff mass. The ovaries are also surgically absent. No free fluid. LYMPH NODES: No greater than 1cm abdominal or pelvic lymph nodes are appreciated. AORTA: No significant abnormality. OSSEOUS STRUCTURES: No significant abnormality is seen. OTHER: No significant additional abnormality is seen. IMPRESSION: 1. Hysterectomy changes noted. No evidence for recurrent or residual vaginal cuff mass. The ovaries a re also surgically absent. No free fluid. No evidence for metastatic disease. 2. Fatty liver and mild hepatomegaly.
== END | disposition home or self-care (01) ==
LOC: RADCTMAIN 13:11
PROVIDERS: ATTEND Internal Medicine Hematology & Oncology
DX: K76.0 Fatty (change of) liver, not elsewhere classified (principal); R16.0 Hepatomegaly, not elsewhere classified; C54.1 Malignant neoplasm of endometrium; Z90.710 Acquired absence of both cervix and uterus; Z90.722 Acquired absence of ovaries, bilateral; Z88.2 Allergy status to sulfonamides
CPT/HCPCS: 82565; 84520; 74177; 36415; Q9967

== ENCOUNTER 2019-02-24 22:38 | Emergency (ER) | payer BC ==
[2019-02-24 22:42] VITALS: BP 137/94; PULSE 79; RESP 18; TEMP 98.7
[2019-02-25] MEDS ORDERED: ONDANSETRON ODT 4 MG TAB ONE (00:15)
[2019-02-25] MEDS ORDERED: MECLIZINE 25 MG TAB ONE (00:15)
== END 2019-02-25 00:30 | disposition home or self-care (01) ==
LOC: EC 22:38
DX: H81.10 Benign paroxysmal vertigo, unspecified ear (principal); E11.9 Type 2 diabetes mellitus without complications; F17.200 Nicotine dependence, unspecified, uncomplicated
CPT/HCPCS: 99284

== ENCOUNTER → 2019-08-07 | Outpatient (CLI) | payer BC ==
[2019-08-07 10:52] LABS: African American GFR (CKD) >90 (>60 ml/min/1.73 sqM); Blood Urea Nitrogen 11 mg/dL (7-17); Non-African American GFR(CKD) >90 (>60 ml/min/1.73 sqM)
--- NOTE | 2019-08-07 12:09 | CT ---
EXAMINATION TYPE: CT abdomen pelvis w con DATE OF EXAM: 08/07/2019 COMPARISON: 02/05/2019 HISTORY: Follow up for endometrial CA CT DLP: 1624.1 mGycm CONTRAST: CT scan of the abdomen and pelvis is performed with Oral Contrast and with IV Contrast, patient injec cinthya with 100 mL of Isovue 300. FINDINGS: LUNG BASES-: No visible nodule. No infiltrate. LIVER/GB: No calcified gallstones. Hepatomegaly with underlying fatty hepatic infiltration. No spa ce occupying hepatic lesion. Biliary tree is of normal caliber. PANCREAS: No inflammation. No distinct mass. SPLEEN: No splenic enlargement. No lesion seen. ADRENALS: No nodule. No thickening. KIDNEYS/BLADDER: No hydronephrosis. No nephrolithiasis. No distinct renal mass. Urinary bladder g rossly unremarkable. BOWEL: Normal appendix. Normal bowel caliber. No inflammation. GENITAL ORGANS: Hysterectomy changes noted. No evidence for recurrent or residual vaginal cuff mass. The ovaries are also surgically absent. No free fluid. LYMPH NODES: No greater than 1cm abdominal or pelvic lymph nodes are appreciated. AORTA: No significant abnormality. OSSEOUS STRUCTURES: No significant abnormality is seen. OTHER: No significant additional abnormality is seen. IMPRESSION: 1. No evidence for recurrent disease or metastatic disease.
== END | disposition home or self-care (01) ==
LOC: RADCTMAIN 10:19
PROVIDERS: ATTEND Internal Medicine Hematology & Oncology
DX: C54.1 Malignant neoplasm of endometrium (principal); Z88.2 Allergy status to sulfonamides
CPT/HCPCS: 82565; 84520; 74177; 36415; Q9967

== ENCOUNTER → 2020-02-09 | Outpatient (CLI) | payer BC ==
[2020-02-09 11:50] LABS: African American GFR (CKD) >90 (>60 ml/min/1.73 sqM); Blood Urea Nitrogen 10 mg/dL (7-17); Non-African American GFR(CKD) >90 (>60 ml/min/1.73 sqM)
--- NOTE | 2020-02-09 12:46 | CT ---
EXAMINATION TYPE: CT abdomen pelvis w con DATE OF EXAM: 02/09/2020 HISTORY: endometrial CA CT DLP: 1723.1mGycm Automated Exposure Control for Dose Reduction was Utilized. CONTRAST: CT scan of the abdomen and pelvis is performed with IV Contrast, patient injected with 100 mL of Isov ue 300. COMPARISON: CT abdomen and pelvis August 07, 2019 and older CTs FINDINGS: LUNG BASES: No significant abnormality is appreciated. LIVER/GB: Liver is diffusely low dense consistent with fatty infiltration. Liver size upper limits of normal and stable. PANCREAS: No significant abnormality is seen. SPLEEN: No significant abnormality is seen. ADRENALS: No significant abnormality is seen. KIDNEYS: Symmetrical medullary uptake and excretion without surrounding solid or cystic renal mass or hydronephrosis seen bilaterally. Stable 2 mm nonobstructing calculus left kidney midpole level coron al image 54. BOWEL: Oral contrast reaches level of the rectum. No suspicious small or large bowel dilatation. UTERUS/ADNEXA: Uterus surgically absent. LYMPH NODES: No new greater than 1cm abdominal or pelvic lymph nodes are appreciated. OSSEOUS STRUCTURES: Posterior interpedicular rods and screws transfix L4 and L5 levels bilaterally wi th artificial disc material. OTHER: No significant additional abnormality is seen. IMPRESSION: No suspicious new mass or adenopathy to suggest neoplastic recurrence.
== END | disposition home or self-care (01) ==
LOC: RADCTMAIN 10:31
PROVIDERS: ATTEND Internal Medicine Hematology & Oncology
DX: C54.1 Malignant neoplasm of endometrium (principal); Z88.2 Allergy status to sulfonamides
CPT/HCPCS: 82565; 84520; 74177; Q9967

== ENCOUNTER → 2020-04-29 | Outpatient (CLI) | payer BC ==
--- NOTE | 2020-04-29 12:26 | US ---
EXAMINATION TYPE: US pelvic limited DATE OF EXAM: 04/29/2020 COMPARISON: NONE CLINICAL HISTORY: 40-year-old female R19.00 Abdominal/ pelvic mass. Patient states she feels a small superficial palpable area in her pelvis just right of midline for the past 3 days TECHNIQUE: Targeted ultrasound examination just to the right of midline anterior pelvis at the site o f patient's palpable area of concern. FINDINGS: 3.6 x 2.1 x 5.3cm hyperechoic ill defined non vascular area seen at patients area of concern. Images suggest that this area is located within the subcutaneous adipose layer. No abdominal wall defect is clearly identified. IMPRESSION: Targeted scanning at the palpable site just to the right of midline anterior pelvis shows a vague 5.3 x 3.6 cm echogenic lesion centered in the subcutaneous adipose letter, suspected lipoma. Clinically correlate. Consider surgical evaluation if there is any enlargement of this palpable area.
== END | disposition home or self-care (01) ==
LOC: RADUSWWP 09:40
PROVIDERS: ATTEND Internal Medicine Hematology & Oncology
DX: R93.41 Abnormal radiologic findings on diagnostic imaging of renal pelvis, ureter, or bladder (principal); Z88.2 Allergy status to sulfonamides
CPT/HCPCS: 76857

== ENCOUNTER 2020-05-22 07:55 | Observation (INO) | payer BC ==
--- NOTE | 2020-05-22 08:20 | ED ---
Chest Pain HPI - General Chief Complaint: Chest Pain Stated Complaint: chest pain Time Seen by Provider: 05/22/20 08:02 Source: patient Mode of arrival: wheelchair Limitations: no limitations - History of Present Illness Initial Comments: 40-year-old female with history of endometrial cancer in remission, diabetes [id number], hypertension presenting for lightheadedness chest discomfort x few seconds. Patient states that around 640 6:55 AM she was in her truck she states that he was on she began sweating she states she rolled the window down she states she continued to feel clammy and lightheaded she states she developed a sharp pain in the center of her chest that lasted for 2 seconds and went away she denies it coming back. She states she is currently chest pain-free she states she felt nauseated had episode of dry heaving. She states that she still feels slightly nauseated. She denies vomiting, diarrhea or abdominal pain fevers. Patient denies any pain deep inspiration extremity swelling recent surgeries or immobilization she denies active cancer hemoptysis she denies any previous coronary artery disease she states she did have a DVT during chemo in 2019 that was of the left upper extremity and resolved. Patient denies any shortness of breath jaw pain arm pain or back pain. Patient denies any unusual symptoms this week. Patient denies experiencing this in the past. Remaining review of systems negative - Related Data Home Medications Medication Instructions Recorded Confirmed metFORMIN HCL [Glucophage] 500 mg PO TID-W/MEALS 04/27/17 05/22/20 lisinopriL [Zestril] 20 mg PO DAILY 06/12/17 05/22/20 Citalopram Hydrobromide [CeleXA] 20 mg PO DAILY 05/22/20 05/22/20 Allergies Allergy/AdvReac Type Severity Reaction Status Date / Time Sulfa (Sulfonamide Allergy Unknown Verified 05/22/20 09:18 Antibiotics) Review of Systems ROS Statement: Those systems with pertinent positive or pertinent negative responses have been documented in the HPI. ROS Other: All systems not noted in ROS Statement are negative. EKG Findings - EKG Comments: EKG Findings:: Ventricular rate 73 bpm, WI interval 180 ms, QR spiritism 82 ms, QT/QTC 386/425 ms. Normal sinus rhythm visits no ST elevation or depression. nonspecific changes. Past Medical History Past Medical History: Cancer, Diabetes Mellitus, GERD/Reflux, Hypertension, Osteoarthritis (OA), Skin Disorder Additional Past Medical History / Comment(s): Kidney stones. uterine and ovarian cancer. uti/mrsa 04-19-17,sciatica, arthrits hips,"herniated discs lumbar."superficialblood clot lt arm-takes baby aspirin ", approx 11 years. wore 24 hour halter monitor-nothing revealed." stated has been dealing with skin condition "rash/patchy blisters" for 2 years has had bx-neg but no dx as of yet stated has appt at [facility] History of Any Multi-Drug Resistant Organisms: MRSA Date of last positivie culture/infection: 04/19/17 MDRO Source:: urine Past Surgical History: Back Surgery, Hysterectomy, Orthopedic Surgery Additional Past Surgical History / Comment(s): at age 7 had lymph nodes remopved from neck-benign,back x 3, lithrotripsy and stent-since removed in kidney, exploratory laparotomy andOOPHERECTOMY Apr BY DR MARIA, HYSTERECTOMY 2017 at [facility]. skin bx-neg Past Anesthesia/Blood Transfusion Reactions: Previous Problems w/ Anesthesia Additional Past Anesthesia/Blood Transfusion Reaction / Comment(s): "came of of aa "angry". Past Psychological History: No Psychological Hx Reported Smoking Status: Current every day smoker Past Alcohol Use History: None Reported Past Drug Use History: None Reported - Past Family History Mother Family Medical History: Diabetes Mellitus, Hypertension Father Family Medical History: Diabetes Mellitus, Hypertension General Exam - General Exam Comments Initial Comments: General: The patient is awake and alert, in no distress Eye: Pupils are equal, round and reactive to light, extra-ocular movements are intact. No nystagmus. There is normal conjunctiva bilaterally. No signs of icterus. Ears, nose, mouth and throat: There are moist mucous membranes and no oral lesions. Neck: The neck is supple, there is no tenderness or JVD. Cardiovascular: There is a regular rate and rhythm. No murmur, rub or gallop is appreciated. Respiratory: Lungs are clear to auscultation, respirations are non-labored, breath sounds are equal. No wheezes, stridor, rales, or rhonchi. Gastrointestinal: Soft, non-distended, non-tender abdomen without masses or organomegaly noted. There is no rebound or guarding present. No CVA tenderness. Musculoskeletal: Normal ROM, no tenderness. Strength 5/5. Sensation intact. Radial and DP pulses equal bilaterally 2+. Neurological: A&O x 3. CN II-XII intact grossly, There are no obvious motor or sensory deficits. Coordination appears grossly intact. Speech is normal. Skin: Skin is warm and dry and no rashes or lesions are noted. No leg swelling pain Psychiatric: Cooperative, appropriate mood & affect, normal judgment. Limitations: no limitations Course Vital Signs 05/22/20 05/22/20 07:58 09:46 Temperature 98.3 F Pulse Rate 84 80 Respiratory 16 18 Rate Blood Pressure 118/83 121/87 O2 Sat by Pulse 99 99 Oximetry Chest Pain MDM - MDM 40-year-old. Presents today for nausea chest discomfort. Patient is diabetic, history of hypertension. EKG no ischemic findings. Troponin negative. Given patient's risk factors and presenting complaint patient be admitted for serial troponins and further evaluation and monitoring. Patient and attending agreeable to this care plan. Dr. Vargas accepted. Disposition Clinical Impression: Chest discomfort, Nausea Disposition: ADMITTED IP TO THIS HOSP Condition: Good Is patient prescribed a controlled substance at d/c from ED?: No Referrals: Jim Garner DO [Primary Care Provider] - 1-2 days Time of Disposition: 09:47 Decision to Admit Reason: Admit from EC Decision Date: 05/22/20 Decision Time: 09:47
[2020-05-22] MEDS ORDERED: ONDANSETRON 4 MG/2 ML VIAL IVP STA (08:22)
[2020-05-22] MEDS ORDERED: ASPIRIN 81 MG PO STA (08:22)
[2020-05-22 08:38] LABS: Basophils % (A) 1 %; Eosinophils # (A) 0.1 k/uL (0-0.7); Eosinophils % (A) 1 %; HCT 44.3 % (34.0-46.0); Lymphocytes # (A) 1.7 k/uL (1.0-4.8); Lymphocytes % (A) 25 %; MCH 33.3 pg (25.0-35.0); MCHC 33.8 g/dL (31.0-37.0); MCV 98.3 fL (80.0-100.0); Mean Platelet Volume 7.4; Monocytes # (A) 0.4 k/uL (0-1.0); Monocytes % (A) 6 %; Neutrophils # (A) 4.5 k/uL (1.3-7.7); Neutrophils % (A) 67 %; Platelet Count 242 k/uL (150-450); RBC 4.51 m/uL (3.80-5.40); RDW 12.2 % (11.5-15.5); WBC 6.7 k/uL (3.8-10.6)
[2020-05-22 08:56] LABS: INR 0.9 (<1.2); Partial Thromboplastin Time 22.2 sec (22.0-30.0); Prothrombin Time 9.9 sec (9.0-12.0)
[2020-05-22 08:59] LABS: ALT 50 U/L (4-34); African American GFR (CKD) >90 (>60 ml/min/1.73 sqM); Albumin 4.7 g/dL (3.5-5.0); Anion Gap 12 mmol/L; Blood Urea Nitrogen 10 mg/dL (7-17); Calcium 10.1 mg/dL (8.4-10.2); Carbon Dioxide 22 mmol/L (22-30); Chloride 100 mmol/L (98-107); Glucose 271 mg/dL (74-99); Non-African American GFR(CKD) >90 (>60 ml/min/1.73 sqM); Sodium 134 mmol/L (137-145); Total Bilirubin 0.6 mg/dL (0.2-1.3); Total Protein 8.5 g/dL (6.3-8.2)
--- NOTE | 2020-05-22 09:05 | XR ---
EXAMINATION TYPE: XR chest 2V DATE OF EXAM: 05/22/2020 COMPARISON: 09/09/2011 HISTORY: Chest pain TECHNIQUE: Frontal and lateral views of the chest are obtained. FINDINGS: There is no focal air space opacity. No evidence for pneumothorax. No pleural effusion. The cardiac silhouette size is within normal limits. The osseous structures are grossly intact. IMPRESSION: 1. No acute cardiopulmonary process.
[2020-05-22 09:26] LABS: Magnesium 1.4 mg/dL (1.6-2.3); Potassium 4.7 mmol/L (3.5-5.1)
[2020-05-22 09:27] LABS: AST 44 U/L (14-36); Alkaline Phosphatase 99 U/L (38-126)
[2020-05-22] MEDS ORDERED: MAGNESIUM OXIDE 400 MG TAB PO STA (09:34)
[2020-05-22] MEDS ORDERED: NITROGLYCERIN SL TABS 0.4 MG TAB SUBLINGUAL PRN (09:47)
[2020-05-22 11:15] LABS: Glucose,Whole Blood 167 mg/dL (75-99)
--- NOTE | 2020-05-22 12:41 | P.CRDCN ---
History of Present Illness Consult date: 05/22/20 Chief complaint: Chest pain History of present illness: This is a very pleasant 40-year-old female patient with an hypertension and also history of endometrial cancer currently in remission presented to the emergency department complaining of chest discomfort. She was in her usual state of health until earlier today when she was driving her car and she did have a warm feeling and subsequently she felt an episode of chest discomfort lasted only for a few seconds.If the symptoms of shortness of breath or dizziness or lightheadedness or syncope. She did have some sweating associated with her symptoms. The patient did not lose her consciousness. Because of that she decided to come to the emergency department the EKG showed sinus rhythm without any significant ST or T-wave abnormalities. The cardiac enzymes were checked and we have only one set of enzymes came in to be unremarkable. The patient never been diagnosed was coronary artery disease and she never seen a operations label clerk in the past. The rest of her blood work came in to be unremarkable. The chest x-ray showed no acute abnormalities. Past Medical History Past Medical History: Cancer, Diabetes Mellitus, GERD/Reflux, Hypertension, Osteoarthritis (OA), Skin Disorder Additional Past Medical History / Comment(s): Kidney stones. uterine and ovarian cancer. uti/mrsa 04-19-17,sciatica, arthrits hips,"herniated discs lumbar."superficialblood clot lt arm-takes baby aspirin." Wore 24 hour halter monitor-nothing revealed." stated has been dealing with skin condition "rash/patchy blisters" for years-- per pt dr. cruz with contact dermititis. History of Any Multi-Drug Resistant Organisms: MRSA Date of last positivie culture/infection: 04/19/17 MDRO Source:: urine Past Surgical History: Back Surgery, Hysterectomy, Orthopedic Surgery Additional Past Surgical History / Comment(s): at age 7 had lymph nodes removed from neck-benign,back x 3, lithrotripsy and stent-since removed in kidney, exploratory laparotomy and OOPHERECTOMY, HYSTERECTOMY 2017 at [facility]. skin bx-neg. Past Anesthesia/Blood Transfusion Reactions: Previous Problems w/ Anesthesia Additional Past Anesthesia/Blood Transfusion Reaction / Comment(s): "came of anesthesia angry". Past Psychological History: No Psychological Hx Reported Smoking Status: Current every day smoker Past Alcohol Use History: None Reported Additional Past Alcohol Use History / Comment(s): started smoking at age 16 smokes 1 ppd. no alcohl since Past Drug Use History: None Reported Additional Drug Use History / Comment(s): pt somes 1 PPD - Past Family History Mother Family Medical History: Diabetes Mellitus, Hypertension Father Family Medical History: Diabetes Mellitus, Hypertension Medications and Allergies Home Medications Medication Instructions Recorded Confirmed Type metFORMIN HCL [Glucophage] 500 mg PO TID-W/MEALS 04/27/17 05/22/20 History lisinopriL [Zestril] 20 mg PO DAILY 06/12/17 05/22/20 History Citalopram Hydrobromide [CeleXA] 20 mg PO DAILY 05/22/20 05/22/20 History Allergies Allergy/AdvReac Type Severity Reaction Status Date / Time Sulfa (Sulfonamide Allergy Unknown Verified 05/22/20 09:18 Antibiotics) Physical Exam Vitals: Vital Signs Temp Pulse Pulse Resp BP BP Pulse Ox 05/22/20 10:55 73 18 05/22/20 10:18 97.9 F 73 18 129/86 99 05/22/20 09:46 80 18 121/87 99 05/22/20 07:58 98.3 F 84 16 118/83 99 Intake and Output 05/21/20 05/22/20 05/22/20 22:59 06:59 14:59 Other: Voiding Method Toilet Weight 102.965 kg - Constitutional General appearance: no acute distress - Respiratory Respiratory: bilateral: CTA - Cardiovascular Rhythm: regular Heart sounds: normal: S1, S2 Results 05/22/20 08:32 05/22/20 08:32 Cardiac Enzymes 05/22/20 05/22/20 05/22/20 Range/Units 08:32 08:32 11:16 AST 44 H (14-36) U/L Troponin I <0.012 <0.012 (0.000-0.034) ng/mL Coagulation 05/22/20 Range/Units 08:32 PT 9.9 (9.0-12.0) sec APTT 22.2 (22.0-30.0) sec CBC 05/22/20 Range/Units 08:32 WBC 6.7 (3.8-10.6) k/uL RBC 4.51 (3.80-5.40) m/uL Hgb 15.0 (11.4-16.0) gm/dL Hct 44.3 (34.0-46.0) % Plt Count 242 (150-450) k/uL Comprehensive Metabolic Panel 05/22/20 Range/Units 08:32 Sodium 134 L (137-145) mmol/L Potassium 4.7 (3.5-5.1) mmol/L Chloride 100 (98-107) mmol/L Carbon Dioxide 22 (22-30) mmol/L BUN 10 (7-17) mg/dL Creatinine 0.66 (0.52-1.04) mg/dL Glucose 271 H (74-99) mg/dL Calcium 10.1 (8.4-10.2) mg/dL AST 44 H (14-36) U/L ALT 50 H (4-34) U/L Alkaline Phosphatase 99 (38-126) U/L Total Protein 8.5 H (6.3-8.2) g/dL Albumin 4.7 (3.5-5.0) g/dL Current Medications Generic Name Dose Route Start Last Admin Trade Name Freq PRN Reason Stop Dose Admin Aspirin 325 mg 05/23/20 09:00 Aspirin 325 Mg Tab PO DAILY LUPILLO Nitroglycerin 0.4 mg 05/22/20 09:47 Nitroglycerin Sl Tabs 0.4 Mg Tab SUBLINGUAL Q5M PRN Chest Pain Intake and Output 05/21/20 05/22/20 05/22/20 22:59 06:59 14:59 Other: Voiding Method Toilet Weight 102.965 kg Patient Weight 05/23/20 06:59 Weight 102.965 kg 05/22/20 08:32 05/22/20 08:32 Assessment and Plan Assessment: Assessment #1 an episode of atypical chest discomfort #2 diabetes #3 hypertension Plan #1 without acute coronary event. Will follow-up with the serial cardiac enzymes #2 obtain an echocardiogram was Doppler #3 further recommendation to follow that #4 I advised the patient to stay overnight in the hospital
[2020-05-22] MEDS: PANTOPRAZOLE 40 MG TABLET PO SCH (14:52)
[2020-05-22 17:00] LABS: Glucose,Whole Blood 213 mg/dL (75-99)
[2020-05-22] MEDS: INSULIN ASPART (NovoLOG) 100 UNIT/ML VIAL SQ SCH ×2 (17:23→20:40)
[2020-05-22 20:35] LABS: Glucose,Whole Blood 215 mg/dL (75-99)
--- NOTE | 2020-05-22 23:02 | P.HPIM ---
History of Present Illness H&P Date: 05/22/20 Chief Complaint: Chest discomfort Patient is a 40-year-old female with a known history of hypertension, diabetes type 2 [id number], osteoarthritis and history of ovarian cancer and recent history of abdominal skin abscess status post IND and antibiotic course for 10 days which she completed couple days ago presents to ER with complaints of chest discomfort. Patient states that she was driving this morning and suddenly diaphoretic and lightheaded and felt very nauseated. Patient also felt chest discomfort for a few seconds. Patient did have sharp mid retrosternal pain lasted few seconds and went away. Currently patient denies any complaints of chest pain. No fever no chills. No episodes of vomiting. Patient completed antibiotic course couple of days ago. Patient does have history of GERD in the past. Not PPI at home currently. Chest x-ray showed no acute cardiopulmonary process EKG showed normal sinus rhythm Laboratory data showed sodium 134 potassium 4.7 BUN 10 and creatinine 0.66 and blood sugar is 271 on admission and magnesium 1.4 AST 44 ALT 50 and alk phos 99 Troponin x2 - Coronavirus PCR not detected Review of Systems Constitutional: Patient denies any fever or chills . No generalized weakness or weight loss. Abdomen: Patient denied nausea vomiting and diarrhea and abdominal pain. Cardiovascular: Patient denies any chest pain or short of breath no palpitations. Respiratory: patient denied any cough or sputum production. No shortness of breath Neurologic: Patient denied any numbness or tingling headache. Musculoskeletal: Patient denies any complaints of joint swelling or deformity. Skin: Negative Psychiatric: Negative Endocrine: No heat or cold intolerance. No recent weight gain. Genitourinary: No dysuria or hematuria. All other 14 point ROS negative except the above Past Medical History Past Medical History: Cancer, Diabetes Mellitus, GERD/Reflux, Hypertension, Osteoarthritis (OA), Skin Disorder Additional Past Medical History / Comment(s): Kidney stones. uterine and ovarian cancer. uti/mrsa 04-19-18,sciatica, arthrits hips,"herniated discs lumbar."superficialblood clot lt arm-takes baby aspirin." Wore 24 hour halter monitor-nothing revealed." stated has been dealing with skin condition "rash/patchy blisters" for years-- per pt dr. cruz with contact dermititis. History of Any Multi-Drug Resistant Organisms: MRSA Date of last positivie culture/infection: 04/19/17 MDRO Source:: urine Past Surgical History: Back Surgery, Hysterectomy, Orthopedic Surgery Additional Past Surgical History / Comment(s): at age 7 had lymph nodes removed from neck-benign,back x 3, lithrotripsy and stent-since removed in kidney, exploratory laparotomy and OOPHERECTOMY, HYSTERECTOMY 2017 at [facility]. skin bx-neg. Past Anesthesia/Blood Transfusion Reactions: Previous Problems w/ Anesthesia Additional Past Anesthesia/Blood Transfusion Reaction / Comment(s): "came of anesthesia angry". Past Psychological History: No Psychological Hx Reported Smoking Status: Current every day smoker Past Alcohol Use History: None Reported Additional Past Alcohol Use History / Comment(s): started smoking at age 16 smokes 1 ppd. no alcohl since Past Drug Use History: None Reported Additional Drug Use History / Comment(s): pt somes 1 PPD - Past Family History Mother Family Medical History: Diabetes Mellitus, Hypertension Father Family Medical History: Diabetes Mellitus, Hypertension Medications and Allergies Home Medications Medication Instructions Recorded Confirmed Type metFORMIN HCL [Glucophage] 500 mg PO TID-W/MEALS 04/27/17 05/22/20 History lisinopriL [Zestril] 20 mg PO DAILY 06/12/17 05/22/20 History Citalopram Hydrobromide [CeleXA] 20 mg PO DAILY 05/22/20 05/22/20 History Allergies Allergy/AdvReac Type Severity Reaction Status Date / Time Sulfa (Sulfonamide Allergy Unknown Verified 05/22/20 09:18 Antibiotics) Physical Exam Vitals: Vital Signs Temp Pulse Pulse Resp BP BP Pulse Ox 05/22/20 10:55 73 18 05/22/20 10:18 97.9 F 73 18 129/86 99 05/22/20 09:46 80 18 121/87 99 05/22/20 07:58 98.3 F 84 16 118/83 99 Intake and Output 05/21/20 05/22/20 05/22/20 22:59 06:59 14:59 Other: Voiding Method Toilet Weight 102.965 kg PHYSICAL EXAMINATION: Patient is lying in the bed comfortably, no acute distress, awake alert and oriented.. HEENT: Normocephalic. Neck is supple. Pupils reactive. Nostrils clear. Oral cavity is moist. Ears reveal no drainage. Neck reveals no JVD, carotid bruits, or thyromegaly. CHEST EXAMINATION: Trachea is central. Symmetrical expansion. Lung marcelo clear to auscultation and percussion. CARDIAC: Normal S1, S2 with no gallops. No murmurs ABDOMEN: Soft. Bowel sounds normal. No organomegaly. No abdominal bruits. Extremities: reveal no edema. No clubbing or cyanosis Neurologically awake, alert, oriented x3 with well-coordinated movements. No focal deficits noted Skin: No rash or skin lesions. Psychiatric: Coperative. Nonsuicidal Musculoskeletal: No joint swelling or deformity. Normal range of motion. Results CBC & Chem 7: 05/22/20 08:32 05/22/20 08:32 Labs: Abnormal Lab Results - Last 24 Hours (Table) 05/22/20 05/22/20 Range/Units 08:32 11:13 Sodium 134 L (137-145) mmol/L Glucose 271 H (74-99) mg/dL POC Glucose (mg/dL) 167 H (75-99) mg/dL Magnesium 1.4 L (1.6-2.3) mg/dL AST 44 H (14-36) U/L ALT 50 H (4-34) U/L Total Protein 8.5 H (6.3-8.2) g/dL Thrombosis Risk Factor Assmnt - DVT/VTE Prophylaxis DVT/VTE Prophylaxis: Pharmacologic Prophylaxis ordered - Choose All That Apply Any of the Below Risk Factors Present?: Yes Each Factor Represents 1 point: Age 41-60 years, Obesity (BMI >25) Other Risk Factors: Yes Each Risk Factor Represents 3 Points: History of DVT/PE Other congenital or acquired thrombophilia - If yes, enter type in comment: No Thrombosis Risk Factor Assessment Total Risk Factor Score: 5 Thrombosis Risk Factor Assessment Level: High Risk Assessment and Plan Assessment: Atypical chest pain. Rule out ACS. Possible acute gastritis and esophagitis with recent completion of antibiotic course for 10 days. Hypomagnesemia History of ovarian cancer Diabetes type 2 [id number] Osteoarthritis Hypertension History of renal stones Currently everyday smoker DVT prophylaxis with heparin subcu Plan: Patient will be continued on telemetry monitoring serial EKG and troponins. Patient will be started PPI. Cardiology was consulted and 2D echocardiogram was ordered. Current with home medications and insulin sliding scale. Further recommendations based on the clinical course. Smoking cessation has been counseled extensively. Time with Patient: Greater than 30
[2020-05-23] MEDS: HEPARIN SODIUM,PORCINE 5,000 UNIT/ML 1 ML VIAL SQ SCH ×4 (01:09→20:10)
[2020-05-23 01:21] LABS: Cholesterol 211 mg/dL (<200); HDL Cholesterol 42 mg/dL (40-60); LDL Cholesterol,Calculated 98 mg/dL (0-99); Triglycerides 355 mg/dL (<150)
[2020-05-23 07:10] LABS: Glucose,Whole Blood 199 mg/dL (75-99)
[2020-05-23] MEDS: PANTOPRAZOLE 40 MG TABLET PO SCH (07:49)
[2020-05-23] MEDS: CITALOPRAM HYDROBROMIDE 20 MG TAB PO SCH (07:49)
[2020-05-23] MEDS: ASPIRIN 325 MG TAB PO SCH (07:49)
[2020-05-23] MEDS: INSULIN ASPART (NovoLOG) 100 UNIT/ML VIAL SQ SCH ×4 (07:49→20:10)
[2020-05-23] MEDS: lisinopriL 20 MG TAB PO SCH (07:50)
--- NOTE | 2020-05-23 08:28 | P.PN ---
Subjective Progress Note Date: 05/23/20 Principal diagnosis: Chest pain This is a very pleasant 40-year-old female patient with diabetes and hypertension who was admitted to the hospital with atypical chest discomfort. She was ruled out for acute coronary event. She underwent an echocardiogram which we will follow-up with. Patient was seen today. She is chest pain-free. I advised the patient to undergo a stress test to rule out severe underlying coronary artery disease giving her multiple risk factor. I am going to schedule the patient to undergo a stress test tomorrow morning. Objective - Vital Signs Vital signs: Vital Signs Temp 98.2 F 05/23/20 07:00 Pulse 66 05/23/20 07:00 Resp 16 05/23/20 07:00 BP 115/71 05/23/20 07:00 Pulse Ox 100 05/23/20 07:00 Intake & Output 05/22/20 05/23/20 05/23/20 18:59 06:59 18:59 Weight 102.965 kg Other: Voiding Method Toilet # Voids 2 1 - Constitutional General appearance: Present: no acute distress - Respiratory Respiratory: bilateral: CTA - Cardiovascular Rhythm: regular Heart sounds: normal: S1, S2 - Labs CBC & Chem 7: 05/22/20 08:32 05/22/20 08:32 Labs: Abnormal Lab Results - Last 24 Hours (Table) 05/22/20 05/22/20 05/22/20 Range/Units 08:32 08:32 11:13 Sodium 134 L (137-145) mmol/L Glucose 271 H (74-99) mg/dL POC Glucose (mg/dL) 167 H (75-99) mg/dL Magnesium 1.4 L (1.6-2.3) mg/dL AST 44 H (14-36) U/L ALT 50 H (4-34) U/L Total Protein 8.5 H (6.3-8.2) g/dL Triglycerides 355 H (<150) mg/dL Cholesterol 211 H (<200) mg/dL 05/22/20 05/22/20 05/23/20 Range/Units 16:59 20:31 07:05 Sodium (137-145) mmol/L Glucose (74-99) mg/dL POC Glucose (mg/dL) 213 H 215 H 199 H (75-99) mg/dL Magnesium (1.6-2.3) mg/dL AST (14-36) U/L ALT (4-34) U/L Total Protein (6.3-8.2) g/dL Triglycerides (<150) mg/dL Cholesterol (<200) mg/dL Assessment and Plan Assessment: Assessment #1 an episode of atypical chest discomfort #2 diabetes #3 hypertension Plan #1 acute coronary syndrome was ruled out #2 follow-up on the echocardiogram #3 stress test to be done tomorrow morning
--- NOTE | 2020-05-23 09:58 | ECHOF ---
Referral Reason:CP MEASUREMENTS -------- HEIGHT: 165.1 cm WEIGHT: 103.0 kg BP: RVIDd: 3.1 cm (< 3.3) IVSd: 1.2 cm (0.6 - 1.1) LVIDd: 4.3 cm (3.9 - 5.3) LVPWd: 1.7 cm (0.6 - 1.1) IVSs: 1.7 cm LVIDs: 3.6 cm LVPWs: 1.4 cm LA Diam: 3.5 cm (2.7 - 3.8) Ao Diam: 3.2 cm (2.0 - 3.7) AV Cusp: 2.1 cm (1.5 - 2.6) MV EXCURSION: 18.547 mm (> 18.000) MV EF SLOPE: 71 mm/s (70 - 150) EPSS: 0.4 cm MV E Daniel: 0.52 m/s MV DecT: 313 ms MV A Daniel: 0.84 m/s MV E/A Ratio: 0.63 RAP: 5.00 mmHg RVSP: 13.69 mmHg FINDINGS -------- Sinus rhythm. This was a technically good study. LV size, wall thickness and systolic function are normal, with an EF greater than 55%. The left miki tricular size is normal. The right ventricle is normal in size. Normal LA size by volume 22+/-6 ml/m2. The right atrial size is normal. The aortic valve is trileaflet, and appears structurally normal. No aortic stenosis or regurgitation. Mild mitral regurgitation is present. Mild tricuspid regurgitation present. Right ventricular systolic pressure is normal at < 35 mmHg. There is no pulmonic regurgitation present. Echo free space indicative of a pericardial fat pad. CONCLUSIONS -------- 1. LV size, wall thickness and systolic function are normal, with an EF greater than 55%. 2. The left ventricular size is normal. 3. The right ventricle is normal in size. 4. Normal LA size by volume 22+/-6 ml/m2. 5. The right atrial size is normal. 6. The aortic valve is trileaflet, and appears structurally normal. No aortic stenosis or regurgitati on. 7. Mild mitral regurgitation is present. 8. Mild tricuspid regurgitation present. 9. Echo free space indicative of a pericardial fat pad. DIANETIC COUNSELOR: Hetal Traore RDCS
[2020-05-23 11:16] LABS: Glucose,Whole Blood 285 mg/dL (75-99)
[2020-05-23 17:13] LABS: Glucose,Whole Blood 276 mg/dL (75-99)
[2020-05-23 20:02] LABS: Glucose,Whole Blood 252 mg/dL (75-99)
--- NOTE | 2020-05-23 22:42 | P.PN ---
Subjective Progress Note Date: 05/23/20 Principal diagnosis: Chest Pain Patient is a 40-year-old female with a known history of hypertension, diabetes type 2 [id number], osteoarthritis and history of ovarian cancer and recent history of abdominal skin abscess status post IND and antibiotic course for 10 days which she completed couple days ago presents to ER with complaints of chest discomfort. Patient states that she was driving this morning and suddenly diaphoretic and lightheaded and felt very nauseated. Patient also felt chest discomfort for a few seconds. Patient did have sharp mid retrosternal pain lasted few seconds and went away. Currently patient denies any complaints of chest pain. No fever no chills. No episodes of vomiting. Patient completed antibiotic course couple of days ago. Patient does have history of GERD in the past. Not PPI at home currently. Chest x-ray showed no acute cardiopulmonary process EKG showed normal sinus rhythm Laboratory data showed sodium 134 potassium 4.7 BUN 10 and creatinine 0.66 and blood sugar is 271 on admission and magnesium 1.4 AST 44 ALT 50 and alk phos 99 Troponin x2 - Coronavirus PCR not detected 05/23/2020 Patient is currently sitting in a chair comfortably. No complaints of chest pain. Patient states that she was having sweating last night. No fever or chills. Patient also states that she always has diarrhea at home. No new changes currently. No cough or sputum production. Serial troponin x3 and EKGs negative. Cardiology is planning for stress test tomorrow. Current medications reviewed. Objective - Vital Signs Vital signs: Vital Signs Temp 98.2 F 05/23/20 07:00 Pulse 66 05/23/20 08:00 Resp 16 05/23/20 08:00 BP 115/71 05/23/20 07:00 Pulse Ox 100 05/23/20 07:00 Intake & Output 05/22/20 05/23/20 05/23/20 18:59 06:59 18:59 Intake Total 400 Balance 400 Weight 102.965 kg Intake: Oral 400 Other: Voiding Method Toilet Toilet # Voids 2 1 - Exam PHYSICAL EXAMINATION: Patient is lying in the bed comfortably, no acute distress, awake alert and orie nted.. HEENT: Normocephalic. Neck is supple. Pupils reactive. Nostrils clear. Oral cavity is moist. Ears reveal no drainage. Neck reveals no JVD, carotid bruits, or thyromegaly. CHEST EXAMINATION: Trachea is central. Symmetrical expansion. Lung marcelo clear to auscultation and percussion. CARDIAC: Normal S1, S2 with no gallops. No murmurs ABDOMEN: Soft. Bowel sounds normal. No organomegaly. No abdominal bruits. Extremities: reveal no edema. No clubbing or cyanosis Neurologically awake, alert, oriented x3 with well-coordinated movements. No focal deficits noted Skin: No rash or skin lesions. Psychiatric: Coperative. Nonsuicidal Musculoskeletal: No joint swelling or deformity. Normal range of motion. - Labs CBC & Chem 7: 05/22/20 08:32 05/22/20 08:32 Labs: Abnormal Lab Results - Last 24 Hours (Table) 05/22/20 05/22/20 05/22/20 Range/Units 08:32 16:59 20:31 POC Glucose (mg/dL) 213 H 215 H (75-99) mg/dL Triglycerides 355 H (<150) mg/dL Cholesterol 211 H (<200) mg/dL 05/23/20 05/23/20 Range/Units 07:05 11:14 POC Glucose (mg/dL) 199 H 285 H (75-99) mg/dL Triglycerides (<150) mg/dL Cholesterol (<200) mg/dL Assessment and Plan Assessment: Atypical chest pain. Ruled out ACS. Possible acute gastritis and esophagitis with recent completion of antibiotic course for 10 days. Hypomagnesemia History of ovarian cancer Diabetes type 2 [id number]-[id number] Osteoarthritis Hypertension History of renal stones Currently everyday smoker DVT prophylaxis with heparin subcu Plan: Patient will be continued on telemetry monitoring serial EKG and troponins negative. Patient was started PPI. followup TSH level. Cardiology is following.. Stress test tomorrow. 2D echocardiogram was ordered. Current with home medications and insulin sliding scale. Further recommendations based on the clinical course. Patient will need GI follow-up for chronic diarrhea. Smoking cessation has been counseled extensively. Time with Patient: Greater than 30
[2020-05-23] MEDS ORDERED: INSULIN DETEMIR (LEVEMIR) 100 UNIT/ML SYR SQ SCH (23:00)
[2020-05-23 23:44] LABS: Glucose,Whole Blood 190 mg/dL (75-99)
[2020-05-24 04:00] LABS: Glucose,Whole Blood 170 mg/dL (75-99)
[2020-05-24 07:47] VITALS: BP 112/77; PULSE 65; RESP 18; TEMP 97.6
[2020-05-24] MEDS: PANTOPRAZOLE 40 MG TABLET PO SCH (07:47)
[2020-05-24 07:51] LABS: Glucose,Whole Blood 200 mg/dL (75-99)
[2020-05-24] MEDS: INSULIN ASPART (NovoLOG) 100 UNIT/ML VIAL SQ SCH ×2 (07:55→13:20)
[2020-05-24] MEDS: HEPARIN SODIUM,PORCINE 5,000 UNIT/ML 1 ML VIAL SQ SCH (07:56)
[2020-05-24] MEDS: lisinopriL 20 MG TAB PO SCH (08:24)
[2020-05-24] MEDS: ASPIRIN 325 MG TAB PO SCH (08:24)
[2020-05-24] MEDS: CITALOPRAM HYDROBROMIDE 20 MG TAB PO SCH (08:24)
[2020-05-24 09:28] LABS: African American GFR (CKD) 105.4 (60.0-200.0); Anion Gap 8.6 mmol/L (4.00-12.00); BUN/Creat Ratio 12.5 Ratio (12.00-20.00); Calcium 9.1 mg/dL (8.7-10.3); Carbon Dioxide 28.4 mmol/L (21.6-31.8); Non-African American GFR(CKD) 90.9 (60.0-200.0); Potassium 4.5 mmol/L (3.5-5.5)
--- NOTE | 2020-05-24 10:50 | P.PN ---
Subjective Progress Note Date: 05/24/20 HISTORY OF PRESENT ILLNESS: Patient examined this morning. She denies chest pain or pressure. Denies shortness of breath. Vital signs are stable. Echocardiogram completed revealing ejection fraction 55%, mild mitral regurgitation, and mild tricuspid regurgitation PHYSICAL EXAM: VITAL SIGNS: Reviewed. GENERAL: Well-developed in no acute distress. NECK: Supple. No JVD or thyromegaly LUNGS: Respirations even and unlabored. Lungs essentially clear to auscultation bilaterally. HEART: Regular rate and rhythm. S1 and S2 heard. EXTREMITIES: Normal range of motion. No clubbing or cyanosis. Peripheral pulses intact. No lower extremity edema ASSESSMENT: Chest pain, atypical Hypertension Diabetes mellitus PLAN: Patient to undergo stress echocardiogram today. If negative, she may be discharged home today from a cardiac perspective and follow up outpatient Nurse practitioner note has been reviewed by physician. Signing provider agrees with the documented findings, assessment, and plan of care. Objective - Vital Signs Vital signs: Vital Signs Temp 97.6 F 05/24/20 07:40 Pulse 65 05/24/20 07:40 Resp 18 05/24/20 07:40 BP 112/77 05/24/20 07:40 Pulse Ox 95 05/24/20 07:40 Intake & Output 05/23/20 05/24/20 05/24/20 18:59 06:59 18:59 Intake Total 1000 200 Balance 1000 200 Intake: Oral 1000 200 Other: Voiding Method Toilet Toilet # Voids 3 3 # Bowel Movements 2 - Labs CBC & Chem 7: 05/22/20 08:32 05/24/20 04:50 Labs: Abnormal Lab Results - Last 24 Hours (Table) 05/23/20 05/23/20 05/23/20 Range/Units 11:14 17:12 20:01 Glucose (70-110) mg/dL POC Glucose (mg/dL) 285 H 276 H 252 H (75-99) mg/dL 05/23/20 05/24/20 05/24/20 Range/Units 23:43 03:58 04:50 Glucose 183 H (70-110) mg/dL POC Glucose (mg/dL) 190 H 170 H (75-99) mg/dL 05/24/20 Range/Units 07:44 Glucose (70-110) mg/dL POC Glucose (mg/dL) 200 H (75-99) mg/dL
[2020-05-24] MEDS ORDERED: Magnesium Replacement Protocol 1 EACH MISC MISCELLANE PRN (11:44)
--- NOTE | 2020-05-24 11:54 | P.DS ---
Providers Date of admission: 05/22/20 09:48 Expected date of discharge: 05/24/20 Attending physician: Jim Garner Consults: 05/22/20 09:47 Consult Physician Urgent Consulting Provider: Christopher Lino Consult Reason/Comments: chest discomfort Do you want consulting provider notified?: Yes Primary care physician: Jim Garner [facility] Course: Final Diagnoses: Atypical chest pain. Ruled out ACS. Possible acute gastritis and esophagitis with recent completion of antibiotic course for 10 days. Hypomagnesemia History of ovarian cancer Diabetes type 2 uty-crhrfuy-avdakyuue Osteoarthritis Hypertension History of renal stones Currently everyday smoker Hypomagnesemia Hospital course: This a 40-year-old female admitted with fluctuating sharp midsternal chest pain accompanied by diaphoresis, lightheadedness and nausea while driving lasting for a few seconds at a time. Recently completed a 10 day antibiotic course following a lanced internal boil.Serial troponin x3 and EKGs r eported negative. Triglycerides 355, cholesterol 211, LDL 98, HDL 42. TSH 2.68. Evaluated by cardiology and scheduled for stress test today. Echo reported normal LV function, EF greater than 55% with mild mitral and tricuspid regurgitation. Magnesium 1.5, replacement protocol ordered. Patient will be discharged home today in stable condition with guarded prognosis pending stress test results, final DC recommendations and clearance from cardiology. Smoking cessation reinforced. The impression and plan of care has been dictated as directed. : I performed a history and examination of this patient, discussed the same with the dictator. I agree with the dictator's note ,documented as a scribe. Any additional findings or plans will be noted. Patient Condition at Discharge: Stable Plan - Discharge Summary Discharge Rx Participant: No New Discharge Prescriptions: Continue metFORMIN HCL [Glucophage] 500 mg PO TID-W/MEALS lisinopriL [Zestril] 20 mg PO DAILY Citalopram Hydrobromide [CeleXA] 20 mg PO DAILY Discharge Medication List metFORMIN HCL [Glucophage] 500 mg PO TID-W/MEALS 04/27/17 [History] lisinopriL [Zestril] 20 mg PO DAILY 06/12/17 [History] Citalopram Hydrobromide [CeleXA] 20 mg PO DAILY 05/22/20 [History] Follow up Appointment(s)/Referral(s): Christopher Lino MD [STAFF PHYSICIAN] - 1 Week Jim Garner DO [Primary Care Provider] - 05/26/20 11:20 am Saloni Hoyos MD [STAFF PHYSICIAN] - 05/31/20 3:00 pm Patient Instructions/Handouts: Angina (DC) Activity/Diet/Wound Care/Special Instructions: magnesium pending.pending stress test, final dc rec and clearance from cardiology. HGB A1C results to be faxed to Dr. Jim Garner.
[2020-05-24 12:37] LABS: Glucose,Whole Blood 258 mg/dL (75-99)
--- NOTE | 2020-05-25 08:24 | ECHOS ---
STRESS ECHOCARDIOGRAM LUMASON: N/A Vial INDICATIONS: Chest pain. MEDICATIONS: BASELINE HEART RATE: 78 BASELINE BLOOD PRESSURE: 116/83 MAXIMUM HEART RATE: 151 MAXIMUM BLOOD PRESSURE: 182/53 85% MPHR: 151 100% MPHR: 178 METS: 10.1 MAXIMUM STAGE REACHED: III TOTAL EXERCISE TIME: 8:25 CLINICAL INFORMATION: Chest pain Baseline EKG shows sinus rhythm with poor R-wave progression. Patient exercised on Bhaskar protocol for a total of 8.5 minutes achieving 10 METS, 84% of predicted maximal heart rate without chest pain or diagnostic ST-segment depression. Baseline echo shows normal left ventricular size, wall motion and systolic function. Postexercise there is normal hyperdynamic response of all segments of myocardium noted. CONCLUSIONS: 1. Above-average exercise tolerance. 2. Negative stress test by EKG criteria. 3. Negative stress echo. XIOMARA / CARENN: [id number] /
== END 2020-05-24 15:15 | disposition home or self-care (01) ==
LOC: EC 07:55 → 6NMEDSUR 09:48
PROVIDERS: ADMIT Family Medicine; ATTEND Family Medicine
DX: R07.2 Precordial pain (principal); R42 Dizziness and giddiness; R61 Generalized hyperhidrosis; R23.1 Pallor; R11.0 Nausea; R19.7 Diarrhea, unspecified; I10 Essential (primary) hypertension; K21.9 Gastro-esophageal reflux disease without esophagitis; E11.9 Type 2 diabetes mellitus without complications; M54.30 Sciatica, unspecified side; M16.0 Bilateral primary osteoarthritis of hip; M51.26 Other intervertebral disc displacement, lumbar region; E83.42 Hypomagnesemia; L98.9 Disorder of the skin and subcutaneous tissue, unspecified; Z86.718 Personal history of other venous thrombosis and embolism; R07.89 Other chest pain; E66.9 Obesity, unspecified; Z68.36 Body mass index [BMI] 36.0-36.9, adult; F17.210 Nicotine dependence, cigarettes, uncomplicated; Z86.711 Personal history of pulmonary embolism; Z85.42 Personal history of malignant neoplasm of other parts of uterus; Z92.21 Personal history of antineoplastic chemotherapy; Z79.899 Other long term (current) drug therapy; Z79.84 Long term (current) use of oral hypoglycemic drugs; Z88.2 Allergy status to sulfonamides; Z87.442 Personal history of urinary calculi; Z85.43 Personal history of malignant neoplasm of ovary; Z87.440 Personal history of urinary (tract) infections; Z86.14 Personal history of Methicillin resistant Staphylococcus aureus infection; Z90.710 Acquired absence of both cervix and uterus; Z82.49 Family history of ischemic heart disease and other diseases of the circulatory system; Z83.3 Family history of diabetes mellitus; Z20.822 Contact with and (suspected) exposure to COVID-19
CPT/HCPCS: 96372 ×2; 93005 ×2; 96374; 99285; 36415; 93306; 93351; 80061; 80053; 80048; 83735 ×2; 84443; 84484; 85025; 85610; 85730; 83036; 87635; 71046; G0378 ×3; J1644 ×2; J2405

== ENCOUNTER → 2020-06-10 | Outpatient (CLI) | payer BC ==
[2020-06-11 11:44] LABS: Gliadin AB IgA, Deaminated NEGATIVE (NEGATIVE); Gliadin AB IgA, Unit 0.6 U/mL; Gliadin AB IgG, Deaminated NEGATIVE (NEGATIVE)
== END | disposition home or self-care (01) ==
LOC: LABWHC1 15:47
PROVIDERS: ATTEND Internal Medicine Gastroenterology
DX: K52.9 Noninfective gastroenteritis and colitis, unspecified (principal)
CPT/HCPCS: 36415; 83516; 85652; 86140

== ENCOUNTER 2020-07-07 07:22 | Day surgery (SDC) | payer BC ==
[2020-07-05 10:56] VITALS: BMI 35.5
[~2020-07-07 07:22] MED LIST: LACTATED RINGERS 1,000 ML IV SCH; LIDOCAINE 1% (10MG/ML) FOR IV START INTRADERMA PRN
[2020-07-07 08:10] VITALS: TEMP 96.2
[2020-07-07] MEDS ORDERED: LIDOCAINE 1% INJ 10MG/ML (20 ML MDV) ONE (08:27)
[2020-07-07] MEDS ORDERED: PROPOFOL 10 MG/ML 20 ML VIAL IV ONE (08:27)
[2020-07-07 08:28] LABS: Glucose,Whole Blood 214 mg/dL (75-99)
--- NOTE | 2020-07-07 08:48 | P.PCN ---
Date of Procedure: 07/07/20 Procedure(s) Performed: Brief history: Patient is a pleasant 40-year-old white female scheduled for an elective upper endoscopy as well as colonoscopy as a part of evaluation of atypical chest pain and chronic diarrhea for the last several months duration. Procedure performed: Esophagogastroduodenoscopy with biopsy Colonoscopy with biopsy Preoperative diagnosis: Atypical chest pain Chronic diarrhea [place] [facility] [place] After informed consent was obtained from the patient was brought into the endoscopy unit and IV sedation was administered by anesthesia under continuous monitoring. Initially upper endoscopy was done. The Olympus GF 160 video endoscope was inserted inserted into the mouth and esophagus intubated without any difficulty and was gradually advanced into the stomach and duodenum and carefully examined. The bulb and second part of the duodenum appeared normal. Biopsies were done from the duodenum to rule out celiac disease. The scope was then withdrawn into the stomach adequately insufflated with air and upon careful examination the antrum had mild gastritis and biopsies were done from this area. The body, cardia and fundus appeared normal. The scope was then withdrawn into the esophagus. The GE junction was located at 40 cm to the incisors. It appeared regular with no erythema erosions or ulcerations. Rest of the esophagus appeared normal. biopsies were done from the distal esophagus. Patient tolerated the procedure well. At this time the patient continued to remain sedation. Initial digital rectal examination was normal. Olympus CF 160 video colonoscope was then inserted into the rectum and gradually advanced to the cecum without any difficulty. Careful examination was performed as the scope was gradually being withdrawn. The prep was excellent. Terminal ileum was normal. The cecum, ascending colon, transverse colon, descending colon, sigmoid colon and rectum appeared normal. random biopsies were done from ascending and descending colon to rule out microscopic/collagenous colitis. Retroflexion was performed in the rectum and no lesions were noted. Patient tolerated the procedure well. Impression: 1. Upper endoscopy revealed mild antral gastritis but no evidence of esophagitis or peptic ulcer disease. 2. Colonoscopy was within normal limits with no evidence of colitis or colorectal neoplasia Recommendations: Findings of this examination were discussed with the patient as well as her family. She was advised to follow with the biopsy results and she'll be seen in office in 2 weeks.
[2020-07-07 09:10] VITALS: BP 97/66; PULSE 65; RESP 20
== END 2020-07-07 09:30 | disposition home or self-care (01) ==
LOC: ORWHC2ENDO 07:22
PROVIDERS: ATTEND Internal Medicine Gastroenterology
DX: K63.89 Other specified diseases of intestine (principal); K52.9 Noninfective gastroenteritis and colitis, unspecified; K29.80 Duodenitis without bleeding; K29.50 Unspecified chronic gastritis without bleeding; K21.00 Gastro-esophageal reflux disease with esophagitis, without bleeding; K08.409 Partial loss of teeth, unspecified cause, unspecified class; I10 Essential (primary) hypertension; F17.210 Nicotine dependence, cigarettes, uncomplicated; E11.9 Type 2 diabetes mellitus without complications; L30.9 Dermatitis, unspecified; Z79.899 Other long term (current) drug therapy; Z79.84 Long term (current) use of oral hypoglycemic drugs; Z88.2 Allergy status to sulfonamides; Z87.442 Personal history of urinary calculi; Z98.1 Arthrodesis status; Z98.890 Other specified postprocedural states; Z90.710 Acquired absence of both cervix and uterus; Z90.79 Acquired absence of other genital organ(s); Z87.898 Personal history of other specified conditions; Z85.42 Personal history of malignant neoplasm of other parts of uterus; Z85.43 Personal history of malignant neoplasm of ovary; Z92.3 Personal history of irradiation; Z92.21 Personal history of antineoplastic chemotherapy
CPT/HCPCS: 88305; 45380; 43239; J2001; J2704

== ENCOUNTER → 2021-07-20 | Outpatient (CLI) | payer BC ==
[2021-07-20 11:39] LABS: African American GFR (CKD) >90 (>60 ml/min/1.73 sqM); Blood Urea Nitrogen 13 mg/dL (7-17); Non-African American GFR(CKD) >90 (>60 ml/min/1.73 sqM)
--- NOTE | 2021-07-20 13:50 | CT ---
EXAMINATION TYPE: CT ChestAbdPelvis w con DATE OF EXAM: 07/20/2021 COMPARISON: CT dated 02/09/2020 HISTORY: Endometrium neoplasm CT DLP: 2481.10 mGycm Automated exposure control for dose reduction was used. CONTRAST: CT scan of the chest, abdomen and pelvis is performed with Oral Contrast and with IV Contrast, patien t injected with 100 mL of Isovue 300. FINDINGS: LUNGS: The lungs are grossly clear, there is no concerning parenchymal mass or nodule identified. T here is no pleural effusion or pneumothorax seen. The tracheobronchial tree is patent. MEDIASTINUM: There are no greater than 1 cm hilar or mediastinal lymph nodes. No gross cardiomegaly. The pulmonary trunk measures 3 cm. No pericardial effusion is seen. OTHER: No aggressive bone lesion. LIVER/GB: Hypodense hepatic parenchyma suggestive of hepatic steatosis. With this limitation, no defi nite hepatic focal lesion identified. Unremarkable gallbladder. PANCREAS: No significant abnormality is seen. SPLEEN: No significant abnormality is seen. ADRENALS: No significant abnormality is seen. KIDNEYS: Stable lobulated outline of the left kidney. Tiny cyst is seen in the right kidney. Unremark able kidneys otherwise. Grossly unremarkable urinary bladder. BOWEL: Unremarkable stomach, duodenum and small bowel. Diffuse wall thickening of the colon, nonspec ific and could be related to mild chronic colitis, please correlate clinically. REPRODUCTIVE ORGANS: Previous hysterectomy. No gross adnexal mass. Suspected pelvic adhesions. LYMPH NODES: No greater than 1 cm abdominal or pelvic lymph nodes are appreciated. OSSEOUS STRUCTURES: Previous L4 and L5 transpedicular fixation L4-5 disc prosthesis. Degenerative justus nges of the hip joints. No aggressive bone lesion. OTHER: Unremarkable abdominal aorta and IVC. No sizable ascites. IMPRESSION: No evidence of local tumor recurrence or metastatic disease in the chest, abdomen or the pelvis. Inci dental findings as described above.
== END | disposition home or self-care (01) ==
LOC: RADCTMAIN 10:48
PROVIDERS: ATTEND Internal Medicine Hematology & Oncology
DX: Z03.89 Encounter for observation for other suspected diseases and conditions ruled out (principal); C54.1 Malignant neoplasm of endometrium
CPT/HCPCS: 82565; 84520; 71260; 74177; 36415; Q9967

== ENCOUNTER 2022-03-02 13:09 | Day surgery (SDC) | payer BC ==
[~2022-03-02 13:09] MED LIST changes: +ACETAMINOPHEN TAB 500 MG TAB PO PRN; +HEPARIN SODIUM,PORCINE/PF 5,000 UNIT/0.5 ML SYRINGE SQ PRN; -LACTATED RINGERS 1,000 ML IV SCH; -LIDOCAINE 1% (10MG/ML) FOR IV START INTRADERMA PRN
[2022-03-02] MEDS ORDERED: HYDROmorphone 0.5 MG/0.5 ML SYRINGE IVP PRN (13:31)
[2022-03-02] MEDS ORDERED: LACTATED RINGERS 1,000 ML IV SCH (13:31)
[2022-03-02] MEDS ORDERED: ONDANSETRON 4 MG/2 ML VIAL IVP ONE (13:31)
[2022-03-02] MEDS ORDERED: MIDAZOLAM 2 MG/2 ML VIAL IV PRN (13:31)
[2022-03-02] MEDS ORDERED: DEXAMETHASONE SOD PHOSPHATE 4 MG/ML 1 ML VIAL IV ONE (13:31)
[2022-03-02] MEDS ORDERED: LIDOCAINE 1% (10MG/ML) FOR IV START INTRADERMA PRN (13:31)
[2022-03-02 13:42] LABS: Glucose,Whole Blood 216 mg/dL (70-110)
[2022-03-02 13:44] VITALS: TEMP 97.1
[2022-03-02] MEDS ORDERED: INSULIN ASPART (NovoLOG) 100 UNIT/ML VIAL SQ ONE (13:51)
[2022-03-02] MEDS ORDERED: PROPOFOL 10 MG/ML 20 ML VIAL IV ONE (15:46)
[2022-03-02] MEDS ORDERED: MIDAZOLAM 2 MG/2 ML VIAL ONE (15:46)
[2022-03-02] MEDS ORDERED: fentaNYL (PF) 50 MCG/ML 2 ML AMP ONE (15:46)
[2022-03-02] MEDS ORDERED: KETAMINE 10 MG/ML 20 ML VIAL ONE (15:46)
[2022-03-02] MEDS ORDERED: BUPIVACAIN-EPI 0.25%-1:200,000 30 ML VIAL SQ ONE (15:59)
[2022-03-02] MEDS ORDERED: ACETAMINOPHEN TAB 325 MG TAB PO PRN (16:17)
[2022-03-02] MEDS ORDERED: NALOXONE 0.4 MG/ML 1 ML VIAL IV PRN (16:17)
[2022-03-02 16:19] VITALS: PULSE 61
--- NOTE | 2022-03-02 16:20 | P.OP ---
Date of Procedure: 03/02/22 Procedure(s) Performed: PREOPERATIVE DIAGNOSIS: Abdominal wall mass POSTOPERATIVE DIAGNOSIS: Same PROCEDURE: Excision abdominal wall mass with intermediate closure SURGEON: Gilda EBL: 2 mL ANESTHESIA: Local plus sedation COMPLICATIONS: None OPERATIVE PROCEDURE: Patient placed on the operating table in the supine position per the patient's lower abdomen was prepped and draped sterilely. The skin was localized with lidocaine. The previous incision was re-incised sharply. The saphenous tissues were dissected using electrocautery. The palpable mass was excised using the cautery at that time. This was sent to pathology. This measured proximally 2.5 cm. The subcutaneous tissues were closed using interrupted 3-0 Vicryl sutures and the skin using a running 4-0 Monocryl suture. Skin glue and sterile dressings were applied. DISPOSITION: Stable to recovery room
[2022-03-02 16:32] VITALS: BP 112/74; RESP 16
[2022-03-02] MEDS ORDERED: KETOROLAC 15 MG/ML 1 ML VIAL IVP SCH (18:00)
== END 2022-03-02 16:51 | disposition home or self-care (01) ==
LOC: OR 13:09
PROVIDERS: ATTEND Surgery
DX: R22.2 Localized swelling, mass and lump, trunk (principal); I10 Essential (primary) hypertension; E11.9 Type 2 diabetes mellitus without complications; N20.0 Calculus of kidney; M19.90 Unspecified osteoarthritis, unspecified site; K21.9 Gastro-esophageal reflux disease without esophagitis; Z88.1 Allergy status to other antibiotic agents; Z87.891 Personal history of nicotine dependence; Z79.84 Long term (current) use of oral hypoglycemic drugs; Z79.899 Other long term (current) drug therapy; Z90.710 Acquired absence of both cervix and uterus; Z98.890 Other specified postprocedural states; Z85.42 Personal history of malignant neoplasm of other parts of uterus
CPT/HCPCS: 22902; J2250; J1100; J0690; J2405; J3010; J2704; J1644; 88305

== ENCOUNTER → 2022-07-19 | Outpatient (CLI) | payer BC ==
[2022-07-19 09:25] LABS: African American GFR (CKD) >90 (>60 ml/min/1.73 sqM); Blood Urea Nitrogen 13 mg/dL (7-17); Non-African American GFR(CKD) >90 (>60 ml/min/1.73 sqM)
--- NOTE | 2022-07-19 11:23 | CT ---
EXAMINATION TYPE: CT ChestAbdPelvis w con CT DLP: 2454 mGycm, Automated exposure control for dose reduction was used. DATE OF EXAM: 07/19/2022 10:52 AM COMPARISON: CT chest and pelvis 07/20/2021, CT abdomen pelvis 02/09/2020. CLINICAL INDICATION:Female, 42 years old with history of C54.1 ENDOMETRIAL CANCER; [facility], Follow up for endometrial cancer. Technique: Multiple axial images of the chest, abdomen, and pelvis were obtained following the intrav enous administration of 100 mL Isovue-300. Oral contrast was administered. Two-dimensional coronal an d sagittal reconstructions were obtained. Findings: CHEST: LUNGS/ PLEURA: No pleural effusion, pneumothorax, or focal consolidation. No suspicious pulmonary nod ule or mass. AIRWAY: Patent and unremarkable.. HEART: Size within normal limits. No pericardial effusion. Small coronary artery calcifications. MEDIASTINUM: No evidence of adenopathy. VASCULATURE: No aortic aneurysm. MUSCULOSKELETAL: No acute osseous abnormalities. No aggressive osseous lesion. SOFT TISSUES/LYMPH NODES: Unremarkable. LOWER NECK: Subcentimeter hypodense nodule within the right thyroid gland.. ABDOMEN: ABDOMEN LIVER: Diffusely hypoattenuating parenchyma. No focal lesion. GALLBLADDER AND BILE DUCTS: Unremarkable. PANCREAS: Unremarkable. SPLEEN: Unremarkable. ADRENAL GLANDS: Unremarkable. KIDNEYS AND URETERS: No evidence of hydronephrosis or renal calculus. The kidneys enhance symmetrical ly. Stable tiny cyst within the left kidney. Similar lobulated appearance of both kidneys. PELVIS BLADDER: Incompletely distended but grossly unremarkable. REPRODUCTIVE: The uterus is surgically absent. No evidence for local recurrence or suspicious adnexal mass. ABDOMEN & PELVIS STOMACH AND BOWEL: Stomach and duodenum are unremarkable. Enteric contrast reaches the rectum. No foc al wall thickening or surrounding inflammatory changes. No evidence of bowel obstruction. PERITONEUM: No evidence of pneumoperitoneum or free fluid. VASCULATURE: No evidence of aortic aneurysm. MUSCULOSKELETAL: No acute osseous abnormalities. No aggressive osseous lesion. Posterior fusion stout es of L4-L5 redemonstrated. LYMPH NODES: No gross evidence for lymphadenopathy. SOFT TISSUE/ABDOMINAL WALL: Unremarkable IMPRESSION: 1. No evidence for local tumor recurrence or metastatic disease within the chest, abdomen or pelvis. 2. Hepatic steatosis.
== END | disposition home or self-care (01) ==
LOC: RADCTMAIN 08:43
PROVIDERS: ATTEND Internal Medicine Hematology & Oncology
DX: C54.1 Malignant neoplasm of endometrium (principal); B37.2 Candidiasis of skin and nail; K76.0 Fatty (change of) liver, not elsewhere classified; D17.30 Benign lipomatous neoplasm of skin and subcutaneous tissue of unspecified sites; I82.619 Acute embolism and thrombosis of superficial veins of unspecified upper extremity
CPT/HCPCS: 82565; 84520; 71260; 74177; 36415; Q9967

== ENCOUNTER → 2022-08-23 | Outpatient (CLI) | payer BC ==
--- NOTE | 2022-08-24 10:05 | MM ---
Reason for Exam: Screening (asymptomatic). Baseline mammogram. Patient History: Menarche at age 10. Patient has no children. Left ovary removed at age 36. Right ovary removed at age 36. Hysterectomy at age 36. Ovarian cancer, age 36. Previous chemotherapy at age 36. Risk Values: Ivonne 5 year model risk: 0.9%. NCI Lifetime model risk: 10.7%. Prior Study Comparison: Patient's first Mammogram. Tissue Density: The breast tissue is heterogeneously dense. This may lower the sensitivity of mammography. Findings: Analyzed By CAD. Right breast: posterior depth focal asymmetry approximately 9.4 cm from the nipple measuring up to 25 x 21 mm. Left breast: There is no suspicious group of microcalcifications or new suspicious mass in either breast. Overall Assessment: Incomplete: need additional imaging evaluation, BI-RAD 0 Management: Diagnostic Breast Ultrasound of the right breast. Diagnostic Mammogram of the right breast. Further workup right breast posterior depth focal asymmetry approximately 9.4 cm from the nipple measuring up to 25 x [address] [facility] will attempt to contact patient to return for supplemental views and ultrasound if indicated. Patient should continue monthly self-breast exams. A clinical breast exam by your physician is recommended on an annual basis. This exam should not preclude additional follow-up of suspicious palpable abnormalities. Note on Ivonne scores and lifetime risk: 1. A Ivonne score greater than 3% is considered moderate risk. If this is the case, consider specialist referral to assess eligibility for a risk reducing agent. 2. If overall lifetime risk for the development of breast cancer is 20% or higher, the patient may qualify for future screening with alternating mammogram and breast MRI. Electronically signed and approved by: Manfred Melgar DO
== END | disposition home or self-care (01) ==
LOC: RADMAMWWP 06:59
PROVIDERS: ATTEND Family Medicine
DX: Z12.31 Encounter for screening mammogram for malignant neoplasm of breast (principal); Z90.721 Acquired absence of ovaries, unilateral
CPT/HCPCS: 77067

== ENCOUNTER → 2022-08-30 | Outpatient (CLI) | payer BC ==
--- NOTE | 2022-08-30 07:35 | MM ---
Reason for Exam: Additional evaluation requested from abnormal screening. Last screening mammogram was performed less than 1 month ago. Patient History: Menarche at age 10. Patient has no children. Left ovary removed at age 36. Right ovary removed at age 36. Hysterectomy at age 36. Postmenopausal. Ovarian cancer, age 36. Previous chemotherapy at age 36. Patient tested for BRCA2 outcome was negative. Risk Values: Ivonne 5 year model risk: 0.9%. NCI Lifetime model risk: 10.7%. Prior Study Comparison: 08/23/2022 Bilateral MG screening mammo w CAD, [facility]. Tissue Density: Right: The breast tissue is heterogeneously dense. This may lower the sensitivity of mammography. Findings: Analyzed By CAD. Suspect global asymmetry 10:00 posterior depth right breast at the area becomes less pronounced on the 3-D lateral view. No definite persisting suspicious mass or abnormal microcalcifications are seen. Further ultrasound evaluation recommended. Overall Assessment: Incomplete: need additional imaging evaluation, BI-RAD 0 Management: Diagnostic Breast Ultrasound of the right breast. Upper outer quadrant. Electronically signed and approved by: Cheryl Aggarwal M.D. Radiologist
--- NOTE | 2022-08-30 08:23 | USB ---
Patient History: Menarche at age 10. Patient has no children. Left ovary removed at age 36. Right ovary removed at age 36. Hysterectomy at age 36. Postmenopausal. Ovarian cancer, age 36. Previous chemotherapy at age 36. Patient tested for BRCA2 outcome was negative. Risk Values: Ivonne 5 year model risk: 0.9%. NCI Lifetime model risk: 10.7%. Technique: Method: Targeted. Prior Study Comparison: 08/23/2022 Bilateral MG screening mammo w CAD, [facility]. Findings: The upper outer quadrant of the right breast, the axilla of the right breast and the retroareolar of the right breast were scanned. Targeted ultrasound right breast upper-outer quadrant 9:00 to 12:00 including the subareolar region and axilla. No solid or cystic lesion is seen. A prominent but nonenlarged right axillary lymph node is noted. Overall Assessment: Probably benign, BI-RAD 3 Management: Diagnostic Mammogram of the right breast in 6 months. For suspected global asymmetry. A clinical breast exam by your physician is recommended on an annual basis and results should be correlated with mammographic findings. This exam should not preclude additional follow-up of suspicious palpable abnormalities. Results were given to the patient verbally at the time of exam. Electronically signed and approved by: Cheryl Aggarwal M.D. Radiologist
== END | disposition home or self-care (01) ==
LOC: RADMAMWWP 06:47
PROVIDERS: ATTEND Family Medicine
DX: R92.8 Other abnormal and inconclusive findings on diagnostic imaging of breast (principal); Z78.0 Asymptomatic menopausal state
CPT/HCPCS: 77061; 77065

== ENCOUNTER → 2023-07-27 | Outpatient (CLI) | payer BC ==
[2023-07-27 08:19] LABS: African American GFR (CKD) >90 (>60 ml/min/1.73 sqM); Blood Urea Nitrogen 14 mg/dL (7-17); Non-African American GFR(CKD) >90 (>60 ml/min/1.73 sqM)
--- NOTE | 2023-07-27 14:12 | CT ---
EXAMINATION TYPE: CT abdomen pelvis w con DATE OF EXAM: 07/27/2023 COMPARISON: 02/09/2020 HISTORY: Endometrial cancer f/u CT DLP: 1999.9 mGycm Automated exposure control for dose reduction was used. TECHNIQUE: Helical acquisition of images was performed from the lung bases through the pelvis. CONTRAST: Performed with Oral Contrast and with IV Contrast, patient injected with 100 mL of Isovue 300. FINDINGS: The lung bases are clear. The gallbladder is normal without distention, wall thickening, pericholecystic fluid or gallstones. T here is no biliary ductal dilatation. There is no focal mass or organomegaly involving the liver, pancreas, spleen or adrenal glands. There is no solid renal mass or hydronephrosis and there is homogeneous contrast enhancement of the r enal parenchyma. The caliber the abdominal aorta is normal is no retroperitoneal adenopathy or hemorr rajesh. The bowel loops are normal in caliber and there is no evidence of dilatation or obstruction. No infla mmatory changes are identified in the bowel wall or mesentery. There is no free intraperitoneal air or fluid. No pelvic mass, free fluid, abscess or adenopathy. There are surgical absence of the uterus. There is an L4-5 spinal fusion. No focal osseous lesions. IMPRESSION: No evidence of recurrent or metastatic disease. No significant abnormality seen.
== END | disposition home or self-care (01) ==
LOC: RADCTMAIN 07:28
PROVIDERS: ATTEND Internal Medicine Hematology & Oncology
DX: C54.1 Malignant neoplasm of endometrium (principal); I82.619 Acute embolism and thrombosis of superficial veins of unspecified upper extremity; D17.30 Benign lipomatous neoplasm of skin and subcutaneous tissue of unspecified sites; I10 Essential (primary) hypertension; B37.2 Candidiasis of skin and nail; Z71.3 Dietary counseling and surveillance
CPT/HCPCS: 82565; 84520; 74177; 36415; Q9967

== ENCOUNTER → 2023-09-03 | Outpatient (CLI) | payer BC ==
--- NOTE | 2023-09-03 08:13 | MM ---
Reason for Exam: Clinical finding. Last mammogram was performed 1 year(s) and 1 month(s) ago. Patient History: Menarche at age 10. Patient has no children. Left ovary removed at age 36. Right ovary removed at age 36. Hysterectomy at age 36. Postmenopausal. Ovarian cancer, age 36. Previous chemotherapy at age 36. Patient tested for BRCA2 outcome was negative. Risk Values: Ivonne 5 year model risk: 0.9%. NCI Lifetime model risk: 10.6%. Prior Study Comparison: 08/23/2022 Bilateral MG screening mammo w CAD, [facility]. 08/30/2022 Right MG 3D work up w/cad RT, [facility]. 08/30/2022 Right US breast workup limited RT, [facility]. Tissue Density: The breasts are heterogeneously dense, which may obscure small masses. Findings: Analyzed By CAD. Global asymmetry posterior upper-outer quadrant right breast remains unchanged for a year. Additional one-year follow-up recommended. Asymmetric density inner central aspect left cc view anterior to middle depth does not persist on additional views. Otherwise, no significant change. Overall Assessment: Probably benign, BI-RAD 3 Management: Diagnostic Mammogram of both breasts in 1 year. Total two-year follow-up right breast. Results were given to the patient verbally at the time of exam. Patient should continue monthly self-breast exams. A clinical breast exam by your physician is recommended on an annual basis. This exam should not preclude additional follow-up of suspicious palpable abnormalities. Note on Ivonne scores and lifetime risk: 1. A Ivonne score greater than 3% is considered moderate risk. If this is the case, consider specialist referral to assess eligibility for a risk reducing agent. 2. If overall lifetime risk for the development of breast cancer is 20% or higher, the patient may qualify for future screening with alternating mammogram and breast MRI. Electronically signed and approved by: Cheryl Aggarwal M.D. Radiologist
== END | disposition home or self-care (01) ==
LOC: RADMAMWWP 07:37
PROVIDERS: ATTEND Family Medicine
DX: R92.8 Other abnormal and inconclusive findings on diagnostic imaging of breast (principal); R92.333 Mammographic heterogeneous density, bilateral breasts; Z78.0 Asymptomatic menopausal state
CPT/HCPCS: 77062; 77066

== ENCOUNTER → 2024-09-24 | Outpatient (CLI) | payer BC ==
[2024-09-24 09:39] LABS: African American GFR (CKD) >90 (>60 ml/min/1.73 sqM); Blood Urea Nitrogen 14 mg/dL (7-17); Non-African American GFR(CKD) >90 (>60 ml/min/1.73 sqM)
--- NOTE | 2024-09-27 08:09 | CT ---
EXAMINATION TYPE: CT abdomen pelvis w con DATE OF EXAM: 09/24/2024 11:17 AM COMPARISON: None. CLINICAL INDICATION: Female, 44 years old with history of C54.1 MALIGNANT NEOPLASM OF ENDOMETRIUM, hx of ovarian ca, yearly check TECHNIQUE: Axial images were obtained from above the diaphragm to the pubic rami in the axial plane a t 5 mm thick sections. Reconstructed images are reviewed on the computer in the coronal plane. CONTRAST: 100 ml mL of Isovue 300. Study performed with Oral Contrast DLP: 1509.6 mGycm, Automated exposure control for dose reduction was used. FINDINGS: Limited CT sections are obtained the lung bases. The lung bases are clear. CT ABDOMEN: Liver: Normal Spleen: Normal Pancreas: Normal Adrenal glands: The adrenal glands are normal. Gallbladder: Normal Kidneys: No masses are evident. No hydronephrosis is present. No cysts are present. Delayed images were obtained through the kidneys, which remain unremarkable. Aorta: Normal Inferior vena cava: Normal. CT PELVIS: Loops of bowel within the abdomen and pelvis are normal. There are loops of bowel which are incom pletely distended or lack oral contrast limiting their evaluation. Appendix: Not identified. No dilated tubular structure or inflammatory changes. Urinary bladder: Normal. Genitourinary structures: Uterus and ovaries are not identified. Osseous structures: No suspicious lytic or sclerotic lesions. Post lumbar spine changes. IMPRESSION: 1. No suspicious changes for metastatic disease. [facility], , 09/27/2024 8:07 AM
== END | disposition home or self-care (01) ==
LOC: RADCTMAIN 08:50
PROVIDERS: ATTEND Internal Medicine Hematology & Oncology
DX: C54.1 Malignant neoplasm of endometrium (principal); Z85.42 Personal history of malignant neoplasm of other parts of uterus; Z85.43 Personal history of malignant neoplasm of ovary
CPT/HCPCS: 74177; 82565; 84520

== ENCOUNTER → 2024-09-29 | Outpatient (CLI) | payer BC ==
--- NOTE | 2024-09-29 16:22 | MM ---
Reason for Exam: Screening (asymptomatic). Last screening mammogram was performed 12 month(s) ago. Patient History: Menarche at age 10. Patient has no children. Left ovary removed at age 36. Right ovary removed at age 36. Hysterectomy at age 36. Postmenopausal. Ovarian cancer, age 36. Previous chemotherapy at age 36. Patient tested for BRCA2 outcome was negative. Risk Values: Ivonne 5 year model risk: 0.9%. NCI Lifetime model risk: 10.5%. Prior Study Comparison: 08/23/2022 Bilateral MG screening mammo w CAD, [facility]. 08/30/2022 Right MG 3D work up w/cad RT, [facility]. 09/03/2023 Bilateral MG 3D diag mammo w/cad LISBETH, [facility]. Tissue Density: The breasts are heterogeneously dense, which may obscure small masses. Findings: Analyzed By CAD. Unchanged global asymmetry posterior upper outer quadrant right breast. There is no suspicious group of microcalcifications or new suspicious mass in either breast. Overall Assessment: Benign, BI-RAD 2 Management: Screening Mammogram of both breasts in 1 year. Patient should continue monthly self-breast exams. A clinical breast exam by your physician is recommended on an annual basis. This exam should not preclude additional follow-up of suspicious palpable abnormalities. Note on Ivonne scores and lifetime risk: 1. A Ivonne score greater than 3% is considered moderate risk. If this is the case, consider specialist referral to assess eligibility for a risk reducing agent. 2. If overall lifetime risk for the development of breast cancer is 20% or higher, the patient may qualify for future screening with alternating mammogram and breast MRI. [facility], , 09/29/2024 4:19 PM. Electronically signed and approved by: Cheryl Aggarwal M.D. Radiologist
== END | disposition home or self-care (01) ==
LOC: RADMAMWWP 09:08
PROVIDERS: ATTEND Internal Medicine Hematology & Oncology
DX: Z12.31 Encounter for screening mammogram for malignant neoplasm of breast (principal); R92.333 Mammographic heterogeneous density, bilateral breasts; Z78.0 Asymptomatic menopausal state
CPT/HCPCS: 77063; 77067